=== PATIENT | female | born 1925 | race Caucasian/White ===

== ENCOUNTER 2016-07-19 11:52 | Emergency (ER) | payer OTHER, MEDICAID ==
[~2016-07-19] VITALS: Ht 152.4 cm; Wt 59.0 kg
[~2016-07-19 11:52] MED LIST: ASC500 PO; CEFE1PIG IVPB; FER325 PO; FURO20TA3 PO; IPRA3AMP HHN; LEVO500T72 PO; LEVO50TA83 PO; PRED10TA PO
[2016-07-19 11:55] VITALS: Ht 152.4 cm; Wt 59.0 kg
[2016-07-19] MEDS ORDERED: FAMOTIDINE 20 MG INJ IV STA (13:20)
[2016-07-19] MEDS ORDERED: SOD CHLORIDE 0.9% 1,000 ML IV STA ×2 (13:20→15:15)
[2016-07-19] MEDS ORDERED: ONDANSETRON 4 MG INJ IV STA (13:20)
[2016-07-19] MEDS ORDERED: LEVO50TA74 PO (13:32)
[2016-07-19 13:44] LABS: HEMATOCRIT 39.6 % (37.0-47.0); HEMOGLOBIN 13.1 g/dl (12.0-16.0); MEAN CORPUSCULAR HEMOGLOBIN 27.4 pg (29.0-33.0); MEAN CORPUSCULAR VOLUME 83.1 fl (82.0-101.0); MEAN PLATELET VOLUME 9.7 fl (7.4-10.4); PLATELET COUNT 79 10^3/UL (140-440); RED BLOOD COUNT 4.76 10^6/ul (4.20-5.40); RED CELL DISTRIBUTION WIDTH 27.9 % (11.5-14.5); UNCORRECTED WBC 6.6 10^3/ul (4.8-10.8); WHITE BLOOD COUNT 6.6 10^3/ul (4.8-10.8)
[2016-07-19 13:48] LABS: CONDITION 1; LH ANALYZER COMMENTS 1; SUSPECT 1
[2016-07-19 13:49] LABS: ALBUMIN 3.5 g/dl (3.3-4.9); POTASSIUM 4.7 mmol/L (3.5-5.1)
[2016-07-19 13:51] LABS: BILIRUBIN,INDIRECT 2.1 mg/dl (0-1.1); BILIRUBIN,TOTAL 2.1 mg/dl (0.2-1.3); CREATININE 1.28 mg/dl (0.44-1.00)
[2016-07-19 13:52] LABS: ALBUMIN/GLOBULIN RATIO 0.74; CALCIUM 9.8 mg/dl (8.4-10.2); TOTAL PROTEIN 8.2 g/dl (6.1-8.1)
[2016-07-19 14:04] LABS: TROPONIN-I 0.052 ng/ml (0.00-0.12)
[2016-07-19 14:07] LABS: BASOPHIL # 0.1 10^3/ul (0.0-0.1); EOSINOPHILS # 0.1 10^3/ul (0.0-0.5); MONOCYTE # 0.3 10^3/ul (0.3-0.9); NEUTROPHIL # 4.1 10^3/ul (1.6-7.5)
--- NOTE | 2016-07-19 14:13 | RADRPT ---
PROCEDURE: XR Chest. CLINICAL INDICATION: Abdominal Pain TECHNIQUE: Single portable view of the chest was obtained COMPARISON: 06/23/2016 FINDINGS: The heart is enlarged. Tortuosity and ectasia of the thoracic aorta. Atherosclerotic aortic calcifi cation. Chronic elevation of the right hemidiaphragm. Minimal bibasilar atelectasis and/or linear scarring. Punctate calcified granuloma overlying the left lung base near the costophrenic angle. The lungs are otherwise clear. There is no pleural effusion or pneumothorax. IMPRESSION: No acute intrathoracic abnormality. No focal consolidation or pleural effusion. RPTAT:AAJJ Jareth Alfonso Physician Date Time Electronically viewed and signed by Physician Elliott on 07/19/2016 14:13 CANDACE/
[2016-07-19 15:46] LABS: ADD UMIC YES; URINE BILIRUBIN (Dip) NEGATIVE (NEGATIVE); URINE BLOOD (Dip) TRACE (NEGATIVE); URINE COLOR LT. YELLOW (YELLOW); URINE GLUCOSE (Dip) NEGATIVE (NEGATIVE); URINE KETONES (Dip) NEGATIVE (NEGATIVE); URINE LEUKOCYTE ESTERASE (Dip) 1+ (NEGATIVE); URINE NITRITE (Dip) POSITIVE (NEGATIVE); URINE TOTAL PROTEIN (Dip) TRACE (NEGATIVE); URINE UROBILINOGEN (Dip) >8.0 E.U./dL (0.1-1.0)
[2016-07-19 15:58] LABS: BACTERIA,URINE MANY; SQUAMOUS EPITHELIAL CELL,UR MODERATE
[2016-07-19] MEDS ORDERED: CEFTRIAXONE 1 GM/50 ML (PMX) 50 ML IVPB ONE (16:00)
--- NOTE | 2016-07-19 16:03 | ERD ---
ER Documentation Chief Complaint Date/Time DATE: 07/19/16 TIME: 16:01 Chief Complaint BIB FAMILY FOR VOMITING TODAY HPI This is an 89-year-old female who presents to the emergency room with family members for evaluation of generalized weakness, and one episode of vomiting today. According family members this patient did vomit once. She has not been having any diarrhea, family denies any fevers associated with this vomiting. Patient denying that she is having any pain anywhere and came to the ER for evaluation ROS All systems reviewed and are negative except as per history of present illness. Medications Home Meds Active Scripts Ipratropium-Albuterol (Ipratropium-Albuterol) 0.5-3 Mg/3 Ml Ampul.neb, 3 ML HHN Q6H RESP THERAPY for 30 Days Prov:MAKAYLA CRAWFORD MD 06/24/16 Furosemide* (Furosemide*) 20 Mg Tablet, 20 MG PO BID DIURETICS, #60 TAB Prov:MAKAYLA CRAWFORD MD 06/24/16 Ferrous Sulfate* (Ferrous Sulfate*) 325 Mg Tabec, 325 MG PO BID, #60 TAB Prov:MAKAYLA CRAWFORD MD 06/24/16 Ascorbic Acid (Vitamin C) 500 Mg Tab, 500 MG PO BID, #30 TAB Prov:MAKAYLA CRAWFORD MD 06/24/16 Reported Medications Levothyroxine Sodium* (Levothyroxine Sodium*) 50 Mcg Tablet, 50 MCG PO BEFORE BREAKFAST, #30 TAB PER RELATIVES PT HASN'T BEEN ABLE TO TAKE RX'S DUE TO INSURANCE ISSUES 07/19/16 Discontinued Scripts Levofloxacin* (Levaquin*) 500 Mg Tablet, 500 MG PO Q48H, #5 TAB Prov:MAKAYLA CRAWFORD MD 06/24/16 Cefepime Hcl/Ivpb* (Cefepime- 1 Gm/50 Ml*) 1 Gm/50 Ml Piggyback, 1 GM IVPB Q12 for 7 Days, EA Prov:MAKAYLA CRAWFORD MD 06/24/16 Prednisone* (Prednisone*) 10 Mg Tab, 10 MG PO DAILY, #10 TAB Prov:MAKAYLA CRAWFORD MD 06/24/16 Levothyroxine Sodium* (Synthroid*) 50 Mcg Tablet, 50 MCG PO DAILY@06, #30 TAB Prov:MAKAYLA CRAWFORD MD 06/24/16 Allergies Allergies: Coded Allergies: No Known Allergy (Unverified , 06/23/16) PMhx/Soc History of Surgery: No Hx Neurological Disorder: No Hx Respiratory Disorders: Yes (COPD, ASTHMA) Hx Cardiac Disorders: Yes (CA, CHF, EF 40%) Hx Psychiatric Problems: No Hx Miscellaneous Medical Probl: Yes (ANEMIA) Hx Alcohol Use: No Hx Substance Use: No Hx Tobacco Use: No Physical Exam Vitals Vital Signs Date Time Temp Pulse Resp B/P Pulse Ox O2 Delivery O2 Flow Rate FiO2 07/19/16 11:55 97.8 80 16 142/63 96 Physical Exam INITIAL VITAL SIGNS: Reviewed by me GENERAL: The patient is well developed and appropriate for usual state of health in no apparent distress HEENT: Dry mucous membranes, pupils equal, round, and reactive to light. EOMI. There is no scleral icterus. NECK: C-spine is soft and supple, there is no meningismus. There is no cervical lymphadenopathy. LUNGS: Clear to auscultation bilaterally. There are no rales, wheezes or rhonchi. HEART: Regular rate and rhythm, no murmurs, clicks, rubs or gallops. ABDOMEN: Soft, non-tender, non-distended. There are bowel sounds in all four quadrants. No rebound or guarding. EXTREMITIES: There is no peripheral cyanosis or edema. No focal swelling or erythema. NEUROLOGICAL: The patient moves all four extremities with 5/5 strength. Cranial nerves II - XII are intact. Normal gait. Alert and oriented SKIN: There is no apparent rash or petechiae. HEME/LYMPHATIC: There is no evidence of excessive bruising or lymphedema. PSYCHIATRIC: The patient does not appear anxious or depressed. Result Diagram: 07/19/16 1330 07/19/16 1330 Results 24 hrs Laboratory Tests Test 07/19/16 13:30 07/19/16 15:06 Alanine Aminotransferase (ALT/SGPT) 76IU/L Albumin 3.5g/dl Albumin/Globulin Ratio 0.74 Alkaline Phosphatase 301IU/L Anion Gap 17 Aspartate Amino Transf (AST/SGOT) 90IU/L Band Neutrophils % 1.0% Basophils # 0.110^3/ul Basophils % 1.0% Blood Morphology Comment Blood Urea Nitrogen 49mg/dl Calcium Level 9.8mg/dl Carbon Dioxide Level 29mmol/L Chloride Level 104mmol/L Creatinine 1.28mg/dl Differential Comment MANUAL DIFF Direct Bilirubin 0.00mg/dl Eosinophils # 0.110^3/ul Eosinophils % 2.0% Globulin 4.70g/dl Glucose Level 147mg/dl Hematocrit 39.6% Hemoglobin 13.1g/dl Indirect Bilirubin 2.1mg/dl Lipase 489U/L Lymphocytes # 2.010^3/ul Lymphocytes % 30.0% Mean Corpuscular Hemoglobin 27.4pg Mean Corpuscular Hemoglobin Concent 33.0g/dl Mean Corpuscular Volume 83.1fl Mean Platelet Volume 9.7fl Monocytes # 0.310^3/ul Monocytes % 4.0% Neutrophils # 4.110^3/ul Neutrophils % 62.0% Nucleated Red Blood Cells # 10^3/ul Nucleated Red Blood Cells % /100WBC Platelet Count 7910^3/UL Potassium Level 4.7mmol/L Red Blood Count 4.7610^6/ul Red Cell Distribution Width 27.9% Sodium Level 145mmol/L Total Bilirubin 2.1mg/dl Total Protein 8.2g/dl Troponin I 0.052ng/ml White Blood Count 6.610^3/ul Urine Bacteria MANY Urine Bilirubin NEGATIVE Urine Clarity SLIGHTLY CLOUDY Urine Color LT. YELLOW Urine Glucose NEGATIVE% Urine Hemoglobin TRACE Urine Ketones NEGATIVE Urine Leukocyte Esterase 1+ Urine Microscopic RBC 2-5/HPF Urine Microscopic WBC >50/HPF Urine Nitrite POSITIVE Urine Specific [employer] 1.015 Urine Squamous Epithelial Cells MODERATE Urine Total Protein TRACE Urine Urobilinogen >8.0 E.U./dL Urine pH 6.5 Current Medications Medications (Trade) Dose Ordered Sig/To Route PRN Reason Start Time Stop Time Status Last Admin Dose Admin Sodium Chloride (NS) 1,000 ml @ 1,000 mls/hr Q1H STAT IV 07/19/16 13:20 07/19/16 14:19 DC 07/19/16 13:37 Ondansetron HCl (Zofran Inj) 4 mg ONCE STAT IV 07/19/16 13:20 07/19/16 13:22 DC 07/19/16 13:37 Famotidine 20 mg 20 mg ONCE STAT IV 07/19/16 13:20 07/19/16 13:22 DC 07/19/16 13:37 Sodium Chloride 1,000 ml @ 1,000 mls/hr Q1H STAT IV 07/19/16 15:15 07/19/16 16:14 Ceftriaxone Sodium (Rocephin) 50 ml @ 100 mls/hr ONCE ONCE IVPB 07/19/16 16:00 07/19/16 16:29 Procedures/MDM Chest X-ray 1V Interpreted by me: Soft Tissue: No acute abnormalities Bones: No acute abnormalities Mediastinum/Cardiac Silhouette/Lungs: [No acute abnormalities] EKG: Rate/Rhythm: [Normal Sinus Rhythm] QRS, ST, T-waves: [No changes consistent w/ acute ischemia] Impression: [No evidence of ischemia or arrhythmia] This is an 89-year-old female who presents to the emergency room for evaluation of generalized weakness, one episode of vomiting. This patient did appear to have dry mucous membranes on my examination, and I did obtain lab work was was normal. Her urinalysis does show nitrite positive urinary tract infection. This patient has nonischemic EKG, normal troponin. Negative chest x-ray. The patient was given Rocephin here in the emergency room and will be discharged home with a prescription for Macrobid. Departure Diagnosis: Primary Impression: Acute cystitis Additional Impressions: Vomiting Renal insufficiency Thrombocytopenia Condition: Stable PACHECO GOMEZ DO Jul 19, 2016 16:03
[2016-07-19] MEDS ORDERED: NITR-58 PO (16:04)
== END 2016-07-19 17:01 | disposition home or self-care (01) ==
LOC: E/R 11:52
DX: N30.00 Acute cystitis without hematuria (principal); N28.9 Disorder of kidney and ureter, unspecified; D69.6 Thrombocytopenia, unspecified; J44.9 Chronic obstructive pulmonary disease, unspecified; J45.909 Unspecified asthma, uncomplicated; I50.9 Heart failure, unspecified; E03.9 Hypothyroidism, unspecified; R53.1 Weakness
CPT/HCPCS: 71010; 80053; 81001; 83690; 84484; 85025; 93005; J0696; J2405; J7030; 36415; 81003; 96374; 96375

== ENCOUNTER 2016-09-15 11:57 | Inpatient (IN) | payer OTHER, MEDICAID ==
[~2016-09-15] VITALS: Ht 152.4 cm; Wt 57.5 kg
[~2016-09-15 11:57] MED LIST changes: -CEFE1PIG IVPB; -LEVO500T72 PO; +LEVO50TA74 PO; -LEVO50TA83 PO; +NITR-58 PO; -PRED10TA PO
[2016-09-16] VITALS (10 sets, daily range): BP systolic 145–192; BP diastolic 67–86; PULSE 70–87; RESP 17–20; Ht 152.4 cm; Wt 57.5 kg
[2016-09-16] MEDS ORDERED: ALBUTEROL 0.5% (NEB) 2.5 MG/0.5 ML AMP INH STA (01:25)
[2016-09-16 01:56] LABS: ADD SCAN DIFF NO
[2016-09-16 01:58] LABS: ABNORMAL IP MESSAGE 1; BASOPHILS % 0.3 % (0.0-2.0); EOSINOPHILS # 0.4 10^3/ul (0.0-0.5); EOSINOPHILS % 6.4 % (0.0-7.0); HEMATOCRIT 38.7 % (37.0-47.0); HEMOGLOBIN 12.5 g/dl (12.0-16.0); LYMPHOCYTES # 1.4 10^3/ul (0.8-2.9); LYMPHOCYTES % 23.8 % (15.0-51.0); MEAN CORPUSCULAR HGB CONC 32.3 g/dl (32.0-37.0); MONOCYTE # 0.5 10^3/ul (0.3-0.9); MONOCYTES % 8.4 % (0.0-11.0); NEUTROPHIL # 3.5 10^3/ul (1.6-7.5); NEUTROPHILS % 60.8 % (39.0-77.0); RED BLOOD COUNT 4.03 10^6/ul (4.20-5.40); RED CELL DISTRIBUTION WIDTH 15.3 % (11.5-14.5); WHITE BLOOD COUNT 5.8 10^3/ul (4.8-10.8)
[2016-09-16 02:09] LABS: PLATELET COUNT 94 10^3/UL (140-415)
[2016-09-16 02:10] LABS: ALBUMIN 3.6 g/dl (3.3-4.9); POTASSIUM 5.4 mmol/L (3.5-5.1)
[2016-09-16 02:12] LABS: CREATININE 1.35 mg/dl (0.44-1.00)
[2016-09-16 02:13] LABS: ALBUMIN/GLOBULIN RATIO 0.76; BILIRUBIN,INDIRECT 0.6 mg/dl (0-1.1); BILIRUBIN,TOTAL 0.6 mg/dl (0.2-1.3); CALCIUM 9.8 mg/dl (8.4-10.2); TOTAL PROTEIN 8.3 g/dl (6.1-8.1)
[2016-09-16 02:24] LABS: TROPONIN-I 0.043 ng/ml (0.00-0.12)
--- NOTE | 2016-09-16 02:43 | RADRPT ---
PROCEDURE: XR Chest. CLINICAL INDICATION: Abdominal pain. TECHNIQUE: Single frontal view of the chest was obtained COMPARISON: 07/19/2016. FINDINGS: Cardiomegaly. Tortuous thoracic aorta. Mild right lung base atelectasis versus airspace disease. Left lung is substantially clear.. There is no pleural effusion or pneumothorax. IMPRESSION: Mild right lung base atelectasis versus airspace disease may represent pneumonia in setting of abdom inal pain. RPTAT: [facility] Physician Namita Date Time Electronically viewed and signed by Physician Namita on 09/16/2016 02:43 RS/
[2016-09-16] MEDS ORDERED: LEVOFLOXACIN 750MG/D5W (PMX) 150 ML IVPB ONE (03:00)
[2016-09-16] MEDS ORDERED: METHYLPREDNISOLONE 125 MG INJ IV ONE (03:00)
[2016-09-16] MEDS ORDERED: SOD CHLORIDE 0.9% 1,000 ML IV ONE (03:00)
--- NOTE | 2016-09-16 03:01 | ERA ---
ER Documentation Chief Complaint Date/Time DATE: 09/16/16 TIME: 02:54 Chief Complaint COUGHING FOR THE PAST 2 WKS. NO DISTRESS, NO SIGNS OF SOB . HPI 89-year-old woman brought in by family members for coughing and shortness of breath 1-2 weeks. She has had no calf or leg swelling, no fevers or chills, no vomiting or diarrhea. Patient denies chest pain, no rash, no recent antibiotics, no new medications. Patient has multiple medical conditions which I reviewed. ROS All systems reviewed and are negative except as per history of present illness. Medications Home Meds Active Scripts Nitrofurantoin Monohyd Macrocr* (Macrobid*) 100 Mg Capsr, 100 MG PO BID for 10 Days, CAP Prov:PACHECO GOMEZ DO 07/19/16 Ipratropium-Albuterol (Ipratropium-Albuterol) 0.5-3 Mg/3 Ml Ampul.neb, 3 ML HHN Q6H RESP THERAPY for 30 Days Prov:MAKAYLA CRAWFORD MD 06/24/16 Furosemide* (Furosemide*) 20 Mg Tablet, 20 MG PO BID DIURETICS, #60 TAB Prov:MAKAYLA CRAWFORD MD 06/24/16 Ferrous Sulfate* (Ferrous Sulfate*) 325 Mg Tabec, 325 MG PO BID, #60 TAB Prov:MAKAYLA CRAWFORD MD 06/24/16 Ascorbic Acid (Vitamin C) 500 Mg Tab, 500 MG PO BID, #30 TAB Prov:MAKAYLA CRAWFORD MD 06/24/16 Reported Medications Levothyroxine Sodium* (Levothyroxine Sodium*) 50 Mcg Tablet, 50 MCG PO BEFORE BREAKFAST, #30 TAB PER RELATIVES PT HASN'T BEEN ABLE TO TAKE RX'S DUE TO INSURANCE ISSUES 07/19/16 Allergies Allergies: Coded Allergies: No Known Allergy (Unverified , 06/23/16) PMhx/Soc Congestive heart failure with a left ventricular ejection fraction of 40%, asthma/COPD, anemia, previous VT, hypothyroidism, obesity History of Surgery: No Hx Neurological Disorder: No Hx Respiratory Disorders: Yes (COPD, ASTHMA) Hx Cardiac Disorders: Yes (VT, CHF, EF 40%) Hx Psychiatric Problems: No Hx Miscellaneous Medical Probl: Yes (ANEMIA) Hx Alcohol Use: No Hx Substance Use: No Hx Tobacco Use: No Smoking Status: Never smoker FmHx Family History: No diabetes Physical Exam Vitals Vital Signs Date Time Temp Pulse Resp B/P Pulse Ox O2 Delivery O2 Flow Rate FiO2 09/16/16 01:50 69 22 97 21 09/15/16 12:11 98.9 60 22 125/60 98 Physical Exam GENERAL: Well-developed, well-nourished, dyspneic HEENT: Moist mucous membranes, pink conjunctiva, no cervical spine tenderness or step-off deformities, no goiter, no jaundice or icterus, extraocular movements intact without pain. No submandibular induration, and no pharyngeal erythema NEURO: Alert and oriented 3, cranial nerves II through XII intact bilaterally, pupils equal round reactive to light, no focal deficits or facial asymmetry, sensation intact distally Strength 5/5 in upper and lower extremities bilaterally CARDIAC: Regular rate and rhythm, no murmurs rubs or gallops LUNGS: Scattered wheezes, no crackles or stridor ABDOMEN: Soft nontender, no guarding, no rigidity, no rebound, no psoas sign no obturator sign. Normoactive bowel sounds SKIN: Warm and dry to touch, no abrasions, contusions, or hematomas, no lacerations, no ecchymosis, no target lesions, and without ulcers EXTREMITIES: No clubbing cyanosis or edema, calves are bilaterally symmetrical, no Homans sign, no popliteal cord sign. Distal pulses equal and bilateral PSYCH: Normal affect without agitation or irritability Result Diagram: 09/16/16 0141 09/16/16 0141 Results 24 hrs Laboratory Tests Test 09/16/16 01:41 Alanine Aminotransferase (ALT/SGPT) 37IU/L Albumin 3.6g/dl Albumin/Globulin Ratio 0.76 Alkaline Phosphatase 199IU/L Anion Gap 17 Aspartate Amino Transf (AST/SGOT) 59IU/L B-Type Natriuretic Peptide 552PG/ML Basophils # 0.010^3/ul Basophils % 0.3% Blood Urea Nitrogen 45mg/dl Calcium Level 9.8mg/dl Carbon Dioxide Level 24mmol/L Chloride Level 109mmol/L Creatinine 1.35mg/dl Direct Bilirubin 0.00mg/dl Eosinophils # 0.410^3/ul Eosinophils % 6.4% Globulin 4.70g/dl Glucose Level 197mg/dl Hematocrit 38.7% Hemoglobin 12.5g/dl Indirect Bilirubin 0.6mg/dl Lipase 1209U/L Lymphocytes # 1.410^3/ul Lymphocytes % 23.8% Mean Corpuscular Hemoglobin 31.0pg Mean Corpuscular Hemoglobin Concent 32.3g/dl Mean Corpuscular Volume 96.0fl Mean Platelet Volume 13.0fl Monocytes # 0.510^3/ul Monocytes % 8.4% Neutrophils # 3.510^3/ul Neutrophils % 60.8% Nucleated Red Blood Cells # 0.010^3/ul Nucleated Red Blood Cells % 0.0/100WBC Platelet Count 9410^3/UL Potassium Level 5.4mmol/L Red Blood Count 4.0310^6/ul Red Cell Distribution Width 15.3% Sodium Level 145mmol/L Total Bilirubin 0.6mg/dl Total Protein 8.3g/dl Troponin I 0.043ng/ml White Blood Count 5.810^3/ul Current Medications Medications (Trade) Dose Ordered Sig/To Route PRN Reason Start Time Stop Time Status Last Admin Dose Admin Albuterol (Proventil 0.5% (Neb)) 5 mg ONCE STAT INH 09/16/16 01:25 09/16/16 01:27 DC 09/16/16 01:49 Methylprednisolone Sodium Succinate 125 mg 125 mg ONCE ONCE IV 09/16/16 03:00 09/16/16 03:01 Sodium Chloride (NS) 1,000 ml @ 1,000 mls/hr Q1H ONCE IV 09/16/16 03:00 09/16/16 03:59 Procedures/MDM IV line was established patient was placed on monitor and storage bin tender rhythm strip revealed a sinus rhythm at about 70 bpm with upright P and T waves. Patient was afebrile. I administered albuterol 10 mg via nebulizer and patient eventually received methylprednisolone 125 mg IV 1. EKG performed, read by me revealed a normal sinus rhythm at 66 bpm, left axis deviation and a right ventricular conduction delay with a QRS duration of 102 ms , no concerning ST elevations or depressions noted. One view chest x-ray performed, read by me revealed a right lower lobe infiltrate and atelectatic changes bilaterally, no end of the diaphragm, no pneumothorax. CBC was unremarkable, electrolytes revealed mild hyperkalemia 5.3 and acute kidney injury with a BUN/creatinine of 45/1.4, liver function tests were unremarkable, lipase was elevated at 1200, troponin was negative, BNP was low. I treated her here with 1 L normal saline intravenously and levofloxacin 750 mg IV. Patient remains afebrile but symptomatic and will be admitted to telemetry setting for continued medical management, IV antibiotics, bronchodilator therapy. Critical Care: Time: 40 minutes, this was time separate from other procedures. Treatments/Evaluations: Close monitoring and treatment of unstable vital signs, cardiorespiratory, and neurologic status, while maintaining tight balance of fluid, respiratory, and cardiac interventions. Departure Diagnosis: Primary Impression: Pneumonia Qualified Code: J18.9 - Pneumonia of right lower lobe due to infectious organism Additional Impressions: COPD (chronic obstructive pulmonary disease) Qualified Code: J44.1 - Chronic obstructive pulmonary disease with acute exacerbation Acute kidney injury Dehydration Pancreatitis Qualified Code: K85.90 - Acute pancreatitis, unspecified complication status, unspecified pancreatitis type Hyperkalemia Condition: CARLA Castillo MD Sep 16, 2016 03:01
[2016-09-16] MEDS ORDERED: NA PHOSPHATE/BIPHOS 133 ML ENEMA PR PRN (04:30)
[2016-09-16] MEDS ORDERED: HYDROCODONE/APAP (5/325) TAB PO PRN (04:30)
[2016-09-16] MEDS ORDERED: NITROGLYCERIN (SL) 0.4 MG TAB SL PRN (04:30)
[2016-09-16] MEDS ORDERED: ALBUTEROL/IPRATROPIUM (NEB) 3 ML AMP HHN PRN (04:30)
[2016-09-16] MEDS ORDERED: LORAZEPAM 2 MG INJ IV PRN (04:30)
[2016-09-16] MEDS ORDERED: NACL 0.9% 3 ML SYG IV SCH (04:30)
[2016-09-16] MEDS ORDERED: ONDANSETRON 4 MG INJ IV PRN (04:30)
[2016-09-16] MEDS ORDERED: ACETAMINOPHEN 325 MG TAB PO PRN (04:30)
[2016-09-16] MEDS ORDERED: MAGNESIUM HYDROXIDE 30ML CUP PO PRN (04:30)
[2016-09-16] MEDS ORDERED: DOCUSATE SODIUM 100 MG CAP PO PRN (04:30)
[2016-09-16] MEDS: PANTOPRAZOLE 40 MG INJ IV SCH (05:42)
[2016-09-16] MEDS: SOD CHLORIDE 0.45% 1,000 ML IV SCH ×2 (05:43→22:33)
[2016-09-16] MEDS: LEVOTHYROXINE 50 MCG TAB PO SCH (05:51)
[2016-09-16] MEDS: hydrALAzine 20 MG INJ IV PRN (05:57)
[2016-09-16 06:02] LABS: ADD SCAN DIFF NO
[2016-09-16 06:11] LABS: ABNORMAL IP MESSAGE 1; BASOPHILS % 0.5 % (0.0-2.0); EOSINOPHILS # 0.1 10^3/ul (0.0-0.5); EOSINOPHILS % 1.6 % (0.0-7.0); HEMATOCRIT 34.7 % (37.0-47.0); HEMOGLOBIN 11.4 g/dl (12.0-16.0); LYMPHOCYTES # 0.5 10^3/ul (0.8-2.9); LYMPHOCYTES % 12.2 % (15.0-51.0); MEAN CORPUSCULAR HEMOGLOBIN 31.5 pg (29.0-33.0); MEAN CORPUSCULAR HGB CONC 32.9 g/dl (32.0-37.0); MEAN CORPUSCULAR VOLUME 95.9 fl (82.0-101.0); MEAN PLATELET VOLUME 11.9 fl (7.4-10.4); MONOCYTE # 0.2 10^3/ul (0.3-0.9); MONOCYTES % 3.7 % (0.0-11.0); NEUTROPHIL # 3.6 10^3/ul (1.6-7.5); NEUTROPHILS % 81.8 % (39.0-77.0); PLATELET COUNT 73 10^3/UL (140-415); RED BLOOD COUNT 3.62 10^6/ul (4.20-5.40); WHITE BLOOD COUNT 4.4 10^3/ul (4.8-10.8)
[2016-09-16 06:45] LABS: ALBUMIN 3.2 g/dl (3.3-4.9)
[2016-09-16 06:46] LABS: POTASSIUM 4.6 mmol/L (3.5-5.1)
[2016-09-16 06:48] LABS: ALBUMIN/GLOBULIN RATIO 0.68; BILIRUBIN,INDIRECT 0.4 mg/dl (0-1.1); BILIRUBIN,TOTAL 0.4 mg/dl (0.2-1.3); CREATININE 1.21 mg/dl (0.44-1.00); TOTAL PROTEIN 7.9 g/dl (6.1-8.1)
[2016-09-16 06:49] LABS: CALCIUM 9.1 mg/dl (8.4-10.2)
--- NOTE | 2016-09-16 07:06 | HP ---
DATE OF ADMISSION: 09/16/2016 IDENTIFICATION: This is an 89-year-old female. CHIEF COMPLAINT: Shortness of breath and coughing. HISTORY OF PRESENT ILLNESS: An 89-year-old female with a past medical history of COPD, hypertension , prediabetes, chronic kidney disease, high cholesterol, CHF, systolic heart failure with an ejectio n fraction of 40%, hypothyroidism, thrombocytopenia, and coronary artery disease, who presents with 2 weeks of coughing and shortness of breath. No fevers or chills. No upper or lower GI bleeding. No nausea or vomiting. No chest pain. No diarrhea or constipation. The patient was last here at [facility] from 06/23/2016 to 06/24/2016. At that time she was treated for intractable abdominal p ain, for which she had an EGD at that time that showed some gastritis and she was sent to a [facility] after that admission. PAST MEDICAL HISTORY: As above. ALLERGIES: NO KNOWN DRUG ALLERGIES. HOME MEDICATIONS: 1. Macrobid 100 mg b.i.d. 2. Ipratropium/albuterol q.6h. 3. Ferrous sulfate 325 b.i.d. 4. Lasix 20 mg b.i.d. 5. Levoxyl 50 mcg before breakfast. 6. Vitamin C 500 mg b.i.d. PAST SURGICAL HISTORY: None. SOCIAL HISTORY: Negative for smoking, drinking, or IV drug abuse. FAMILY HISTORY: Noncontributory. PHYSICAL EXAMINATION: VITAL SIGNS: Today T-max 98.9, pulse 69, respirations 22, blood pressure is 125/60, saturating at 9 8% on room air. GENERAL: The patient is lying in bed, answering questions appropriately, in no acute distress. HEENT: Pupils are equal, round, and react to light. Extraocular muscles intact. NECK: Supple. No thyromegaly. LUNGS: Mild wheezes heard bilaterally. No crackles. CARDIOVASCULAR: S1, S2 heard. No rubs or gallops. ABDOMEN: Soft, nontender, nondistended. Normal bowel sounds. No rebound or guarding. MUSCULOSKELETAL: No lower extremity edema bilaterally. NEUROLOGIC: No focal deficits. LABORATORY: CBC is normal, except the platelets are 94. Sodium 145, potassium 5.4, chloride 109, C O2 24, BUN 45, creatinine 1.35, glucose 197. AST is 59. Alkaline phosphatase 199. The rest of the LFTs are normal. BNP is 552, slightly elevated. Lipase is 1209. Chest x-ray showed mild right lung base atelectasis versus airspace disease. May represent pneumoni a in the setting of abdominal pain. ASSESSMENT AND PLAN: An 89-year-old female coming in with shortness of breath, cough, signs of panc reatitis and possible upper respiratory infections. 1. Shortness of breath and cough. Will admit the patient to the telemetry floor, put her on DuoNeb treatments, broad spectrum antibiotics and check a TSH, A1c, and lipid panel. Tylenol p.r.n. for p ain and fevers. Follow up culture results. Suspect signs of possible mild upper respiratory infect ion. 2. Elevated lipase and signs of pancreatitis. Keep the patient n.p.o. Give her half-normal saline IV fluids. 3. Mild hypernatremia. Continue half-normal saline IV fluids. 4. History of coronary artery disease, with possible RI in the past. Continue the current medicati ons. Continue to monitor for now. She is on the telemetry floor. Nitroglycerin p.r.n. 5. History of congestive heart failure, with an ejection fraction of 40%, with a history of systoli c heart failure. Consider checking a repeat echocardiogram. Monitor for now. Otherwise get PT and OT consults as well. 6. History of chronic obstructive pulmonary disease and asthma. Again, she is on DuoNebs p.r.n. Sh e does have some wheezing, so if it gets worse, consider changing it to around the clock. 7. Thrombocytopenia. No signs of any bleeding. Continue to monitor for now. Hold all anticoagula nts as well. Monitor for signs of bleeding. 8. Hypothyroidism. Continue Synthroid. 9. Gastrointestinal prophylaxis. She is on a PPI. 10. Deep venous thrombosis prophylaxis. SCDs. Dictated By: ANALI TOLENTINO Conf#: [id number] DID#: [id number]
[2016-09-16] MEDS ORDERED: NA POLYST SULFON 15 GM/60 ML BTL PO ONE (07:30)
[2016-09-16] MEDS: ALBUTEROL/IPRATROPIUM (NEB) 3 ML AMP HHN SCH ×3 (08:00→20:08)
[2016-09-16] MEDS: FERROUS SULFATE (EC) 325 MG TAB PO SCH ×2 (10:06→22:35)
[2016-09-16] MEDS: ASCORBIC ACID 500 MG TAB PO SCH ×2 (10:06→22:35)
--- NOTE | 2016-09-16 13:34 | PN ---
Date/Time of Note Date/Time of Note DATE: 09/16/16 TIME: 13:18 Assessment/Plan VTE Prophylaxis VTE Prophylaxis Intervention: SCD's Assessment/Plan Assessment/Plan 1. acute pancreatitis, ?etiology, abdominal ultrasound, start diet since pain is subsided today 2. Dehydration from vomiting, IVF 3. Mild hypernatremia. Continue half-normal saline IV fluids. 4. Acute renal failure due to dehydration, IVF 5. History of coronary artery disease, with possible [place] in the past. Continue the current medications. 6. History of congestive heart failure, with an ejection fraction of 40%, with a history of systolic heart failure. stable 7. History of chronic obstructive pulmonary disease and asthma. stable 8 Thrombocytopenia. No signs of any bleeding. Continue to monitor for now. follow up with PLT 9. Hypothyroidism. Continue Synthroid. 10. Gastrointestinal prophylaxis. She is on a PPI. 11. Deep venous thrombosis prophylaxis. SCDs Subjective 24 Hr Interval Summary Free Text/Dictation no abdominal pain, no nausea or vomiting today No shortness of breath Exam/Review of Systems Vital Signs Vitals Vital Signs Date Time Temp Pulse Resp B/P Pulse Ox O2 Delivery O2 Flow Rate FiO2 09/16/16 12:28 87 09/16/16 12:08 98.0 17 145/69 99 09/16/16 05:07 Room Air 09/16/16 01:50 21 Exam Constitutional: alert, oriented, well developed Psych: nl mood/affect, no complaints Head: atraumatic, normocephalic Eyes: EOMI, PERRL, nl conjunctiva, nl lids ENMT: nl external ears & nose, nl lips & teeth, nl nasal mucosa & septum Neck: non-tender, supple Respiratory: clear to auscultation, normal air movement, No congested cough, No crackles/rales, No diminished breath sounds, No intercostal retraction, No labored breathing, No other, No respirations, No tactile fremitus, No wheezing Cardiovascular: nl pulses, regular rate and rhythm, No S3, No S4, No bruits, No diastolic murmur, No edema, No gallop, No irregular rhythm, No jugular venous distention (JVD), No murmurs/extra sounds, No other, No rub, No systolic murmur Gastrointestinal: nl liver, spleen, non-tender, soft, No ascites, No bowel sounds, No distended, No firm, No hepatomegaly, No mass , No other, No rebound or guarding, No splenomegaly, No surgical scars, No tender Musculoskeletal: nl extremities to inspection Extremities: normal pulses, No calf tenderness, No clubbing, No cyanosis, No edema, No other, No palpable cord, No pitting pedal edema, No tenderness Neurological: ELECTRICIAN II-XII intact, nl mental status, nl speech, nl strength Skin: nl turgor Lymph: nl lymph nodes Results Result Diagram: 09/16/16 0535 09/16/16 0535 Results 24 hrs Laboratory Tests Test 09/16/16 01:41 09/16/16 05:35 Alanine Aminotransferase (ALT/SGPT) 37 37 Albumin 3.6 3.2 L Albumin/Globulin Ratio 0.76 0.68 Alkaline Phosphatase 199 H 187 H Anion Gap 17 H 18 H Aspartate Amino Transf (AST/SGOT) 59 H 46 B-Type Natriuretic Peptide 552 H Basophils # 0.0 0.0 Basophils % 0.3 0.5 Blood Urea Nitrogen 45 H 42 H Calcium Level 9.8 9.1 Carbon Dioxide Level 24 23 Chloride Level 109 109 Creatinine 1.35 H 1.21 H Direct Bilirubin 0.00 0.00 Eosinophils # 0.4 0.1 Eosinophils % 6.4 1.6 Globulin 4.70 H 4.70 H Glucose Level 197 169 Hematocrit 38.7 34.7 L Hemoglobin 12.5 11.4 L Indirect Bilirubin 0.6 0.4 Lipase 1209 H 1217 H Lymphocytes # 1.4 0.5 L Lymphocytes % 23.8 12.2 L Mean Corpuscular Hemoglobin 31.0 31.5 Mean Corpuscular Hemoglobin Concent 32.3 32.9 Mean Corpuscular Volume 96.0 95.9 Mean Platelet Volume 13.0 #H 11.9 H Monocytes # 0.5 0.2 L Monocytes % 8.4 3.7 Neutrophils # 3.5 3.6 Neutrophils % 60.8 81.8 H Nucleated Red Blood Cells # 0.0 0.0 Nucleated Red Blood Cells % 0.0 0.0 Platelet Count 94 L 73 #L Potassium Level 5.4 H 4.6 Red Blood Count 4.03 L 3.62 L Red Cell Distribution Width 15.3 #H 15.0 H Sodium Level 145 H 145 H Total Bilirubin 0.6 0.4 Total Protein 8.3 H 7.9 Troponin I 0.043 White Blood Count 5.8 4.4 #L Free Thyroxine 1.41 Medications Medications Current Medications Ondansetron HCl (Zofran Inj) 4 mg Q6H PRN IV NAUSEA AND/OR VOMITING; Start at 04:30 Acetaminophen (Tylenol Tab) 650 mg Q6H PRN PO PAIN LEVEL 1-3 OR FEVER; Start at 04:30 Acetaminophen/ Hydrocodone Bitart ([place] (5/325)) 1 tab Q6H PRN PO MODERATE PAIN LEVEL 4-6; Start 09/16/16 at 04:30 Morphine Sulfate (morphine) 2 mg Q4H PRN IV SEVERE PAIN LEVEL 7-10; Start 09/16 at 04:30 Docusate Sodium (Colace) 100 mg Q12H PRN PO CONSTIPATION; Start 09/16/16 at 04: 30 Magnesium Hydroxide (Milk Of Mag) 30 ml DAILY PRN PO CONSTIPATION; Start at 04:30 Sodium Biphosphate/ Sodium Phosphate (Fleet Enema) 133 ml DAILY PRN [place] CONSTIPATION; Start 09/16/16 at 04:30 Pantoprazole 40 mg 40 mg DAILY@06 IV Last administered on 09/16/16 05:42; Admin Dose 40 MG; Start 09/16/16 at 06:00 Sodium Chloride (1/2 NS) 1,000 ml @ 75 mls/hr [id number] IV Last administered on 09/16/16 05:43; Admin Dose 75 MLS/HR; Start 09/16/16 at 04:20 Lorazepam 0.5 mg 0.5 mg Q6H PRN IV ANXIETY; Start 09/16/16 at 04:30 Levofloxacin/ Dextrose (Levaquin 750 Mg/ D5W 150 ml (Pmx)) 150 ml @ 100 mls/hr Q48H IVPB ; Start 09/18/16 at 03:00 Hydralazine HCl (Apresoline) 10 mg Q6H PRN IV ELEVATED SYSTOLIC BP Last administered on 09/16/16 05:57; Admin Dose 10 MG; Start 09/16/16 at 04:30 Nitroglycerin (Nitroglycerin (Sl Tab) 0.4 Mg) 1 tab Q5M PRN SL ANGINA; Start at 04:30 Ascorbic Acid (Vitamin C) 500 mg BID PO Last administered on 09/16/16 10:06; Admin Dose 500 MG; Start 09/16/16 at 09:00 Ferrous Sulfate (Ferrous Sulfate (Ec)) 325 mg BID PO Last administered on 10:06; Admin Dose 325 MG; Start 09/16/16 at 09:00 ESAU NAIDU MD Sep 16, 2016 13:28
[2016-09-16 15:14] LABS: ADD UMIC YES; URINE BILIRUBIN (Dip) NEGATIVE (NEGATIVE); URINE BLOOD (Dip) NEGATIVE (NEGATIVE); URINE COLOR LT. YELLOW (YELLOW); URINE GLUCOSE (Dip) NEGATIVE (NEGATIVE); URINE KETONES (Dip) NEGATIVE (NEGATIVE); URINE LEUKOCYTE ESTERASE (Dip) 1+ (NEGATIVE); URINE NITRITE (Dip) NEGATIVE (NEGATIVE); URINE TOTAL PROTEIN (Dip) NEGATIVE (NEGATIVE); URINE UROBILINOGEN (Dip) 0.2 E.U./dL (0.1-1.0)
[2016-09-16 15:34] LABS: BACTERIA,URINE MANY; SQUAMOUS EPITHELIAL CELL,UR MODERATE; URINE RBCS NONE SEEN /HPF (0)
--- NOTE | 2016-09-16 19:12 | RADRPT ---
Echocardiogram Report Patient Name: TOMAS KIMBALL Gender: Female Date: 1925 Study Date: 16-Sep-2016 Borematic Machine Operator: Ck Wu [facility] Location: [id number] Ref. Physician: ANALI BARRETO Quality: Good Procedures: Transthoracic echocardiogram with complete 2D, M-Mode, and doppler examination. Indications: Shortness of breath. 2D/M Mode Doppler Measurement Value Normal Ranges Measurement Value Normal Ranges LVIDd 2D 4.4 3.5 - 5.6 cm PATRICK Vmax 1.6 cm2 LVIDs 2D 3.5 2.1 - 4.1 cm PATRICK VTI 1.6 cm2 LVPWd 2D 1.3 0.6 - 1.1 cm AV Mean Ajit 1.3 m/sec IVSd 2D 1.4 0.6 - 1.1 cm AV Mean PG 8.2 mmHg AoR Diam 2D 2.9 2.0 - 3.7 cm AV Peak Ajit 2.2 m/sec EDV 2D 89.0 cm3 AV Peak PG 18.6 mmHg ESV 2D 41.1 cm3 AV VTI 33.3 cm LA Dimen 2D 4.2 2.3 - 4.0 cm AI Peak PG 74.2 mmHg LVOT Diam 2.0 cm AI Peak Ajit 4.3 m/sec AI PHT 303.6 msec LVOT Mean Ajit 0.6 m/sec LVOT Mean PG 1.8 mmHg LVOT Peak Ajit 1.1 m/sec LVOT Peak PG 4.5 mmHg LVOT VTI 16.9 cm MV E Peak Ajit 0.5 m/sec MV A Peak Ajit 0.9 m/sec MV E/A 0.6 MV Decel Time 109 msec MV Decel Preston 5 MV E/A 0.6 Findings Left Ventricle: Normal left ventricular cavity size. Mild concentric left ventricular hypertrophy. Mild left ventricular systolic dysfunction. Ejection fraction is visually estimated at 45 %. Tissue Doppler/Mitral Doppler indices are consistent with impaired relaxation (Stage I diastolic dysfunction). These segments of the LV are hypokinetic mid septum segment. Right Ventricle: Normal right ventricular size. Normal right ventricular systolic function. Left Atrium: There is mild enlargement of left atrium. Right Atrium: The right atrium is normal in size. Mitral Valve: Mitral valve leaflets appear mildly thickened. Mild mitral valve regurgitation. Aortic Valve: Mild aortic stenosis. Aortic valve Max velocity 2.16 m/sec. Max PG 18.60 mmHg. Mean PG 8.20 mmHg. Aortic cusps appear mildly calcified. Mild aortic valve regurgitation. Tricuspid Valve: Normal appearance and function of the tricuspid valve with trace physiologic regurgitation. Pulmonic Valve: Normal pulmonic valve appearance. Pericardium: Normal pericardium with no significant pericardial effusion. Aorta: Normal aortic root. IVC: Normal size and no respiratory collapse consistent with elevated right atrial pressure. Conclusions 1.Normal left ventricular cavity size. Mild concentric left ventricular hypertrophy. Mild left ventricular systolic dysfunction. Ejection fraction is visually estimated at 45-50 %. Tissue Doppler/Mitral Doppler indices are consistent with impaired relaxation (Stage I diastolic dysfunction). These segments of the LV are hypokinetic mid septum segment. 2.Mild mitral valve regurgitation. 3.Mild Aortic Stenosis. Mild aortic valve regurgitation. 4.Normal appearance and function of the tricuspid valve with trace physiologic regurgitation. Electronically Signed By: Joe Bello 16-Sep-2016 19:12:14 -0700 Patient Name: TOMAS KIMBALL Study Date: 16-Sep-2016 [id number]
[2016-09-17] VITALS (11 sets, daily range): BP systolic 98–173; BP diastolic 56–76; PULSE 64–112; RESP 17–18
[2016-09-17] MEDS: ALBUTEROL/IPRATROPIUM (NEB) 3 ML AMP HHN SCH ×4 (01:41→20:17)
[2016-09-17] MEDS: morphine 2 MG INJ IV PRN (03:52)
[2016-09-17] MEDS: PANTOPRAZOLE 40 MG INJ IV SCH (05:47)
[2016-09-17] MEDS: SOD CHLORIDE 0.45% 1,000 ML IV SCH ×2 (05:47→21:35)
[2016-09-17] MEDS: LEVOTHYROXINE 50 MCG TAB PO SCH (06:06)
[2016-09-17 08:00] LABS: CHOL/HDL RATIO 4.8 RATIO
[2016-09-17 08:20] LABS: ADD SCAN DIFF NO
[2016-09-17 08:25] LABS: THYROID STIMULATING HORMONE 3.46 MIU/L (0.465-4.680)
[2016-09-17 08:40] LABS: ABNORMAL IP MESSAGE 1; BASOPHILS % 0.2 % (0.0-2.0); EOSINOPHILS % 0.3 % (0.0-7.0); HEMOGLOBIN 9.8 g/dl (12.0-16.0); LYMPHOCYTES % 15.1 % (15.0-51.0); MEAN CORPUSCULAR HGB CONC 33.8 g/dl (32.0-37.0); MEAN CORPUSCULAR VOLUME 94.8 fl (82.0-101.0); MEAN PLATELET VOLUME 12.4 fl (7.4-10.4); MONOCYTE # 0.6 10^3/ul (0.3-0.9); MONOCYTES % 9.4 % (0.0-11.0); NEUTROPHIL # 4.8 10^3/ul (1.6-7.5); NEUTROPHILS % 74.7 % (39.0-77.0); PLATELET COUNT 80 10^3/UL (140-415); RED BLOOD COUNT 3.06 10^6/ul (4.20-5.40); WHITE BLOOD COUNT 6.4 10^3/ul (4.8-10.8)
[2016-09-17 08:46] LABS: POTASSIUM 4.4 mmol/L (3.5-5.1)
[2016-09-17 08:48] LABS: CREATININE 1.35 mg/dl (0.44-1.00)
[2016-09-17 08:49] LABS: CALCIUM 9.2 mg/dl (8.4-10.2); PHOSPHORUS 3.9 mg/dl (2.5-4.9)
[2016-09-17 08:50] LABS: MAGNESIUM 1.9 mg/dl (1.7-2.5)
[2016-09-17] MEDS: FERROUS SULFATE (EC) 325 MG TAB PO SCH ×2 (09:23→21:34)
[2016-09-17] MEDS: ASCORBIC ACID 500 MG TAB PO SCH ×2 (09:23→21:34)
--- NOTE | 2016-09-17 14:27 | PN ---
Date/Time of Note Date/Time of Note DATE: 09/17/16 TIME: 14:20 Assessment/Plan VTE Prophylaxis VTE Prophylaxis Intervention: SCD's VTE Contraindication Reason: thrombocytopenia Lines/Catheters IV [facility] Saline Lock Urinary Cath still in place: No Assessment/Plan Assessment/Plan 1. Acute pancreatitis, ?etiology,: much improved 2. Dehydration from vomiting: s/p rehydration 3. Mild hypernatremia. resolved 4. CKD stage IV : patient seems to be at baseline 5. Known coronary artery disease, with possible [place] in the past. Continue the current medications. 6. History of congestive heart failure, with an ejection fraction of 40%, with a history of systolic heart failure. stable 7. Chronic obstructive pulmonary disease and asthma exacerbation. stable 8 Gram negative zachary UTI with probable R Lower lobe pneumonia 9. Hypothyroidism. Continue Synthroid. 10. Chronic thrombocytopenia, cannot r/o underlying liver disease PLAN: * continue current mgt * f/u final culture results * Gastrointestinal prophylaxis. She is on a PPI. * Deep venous thrombosis prophylaxis. SCDs Subjective 24 Hr Interval Summary Free Text/Dictation lethargic ++ Exam/Review of Systems Vital Signs Vitals Vital Signs Date Time Temp Pulse Resp B/P Pulse Ox O2 Delivery O2 Flow Rate FiO2 09/17/16 12:38 64 09/17/16 11:45 98.4 18 98/56 100 09/17/16 07:59 21 09/16/16 05:07 Room Air Intake and Output 09/16/16 09/16/16 09/17/16 15:00 23:00 07:00 Intake Total 250 ml Balance 250 ml Exam Constitutional: frail, oriented Head: normocephalic Eyes: PERRL ENMT: No mucosa pink and moist Respiratory: diminished breath sounds, wheezing, No crackles/rales Cardiovascular: regular rate and rhythm, No murmurs/extra sounds Gastrointestinal: bowel sounds, soft, tender Extremities: No edema Neurological: lethargic Results Result Diagram: 09/17/16 0635 09/17/16 0635 Results 24 hrs Laboratory Tests Test 09/17/16 06:35 Anion Gap 17 H Basophils # 0.0 Basophils % 0.2 Blood Urea Nitrogen 40 H Calcium Level 9.2 Carbon Dioxide Level 20 L Chloride Level 111 H Cholesterol Level 130 Cholesterol/HDL Ratio 4.8 Creatinine 1.35 H Eosinophils # 0.0 Eosinophils % 0.3 Glucose Level 105 # HDL Cholesterol 27 L Hematocrit 29.0 L Hemoglobin 9.8 L Hemoglobin A1c 5.5 LDL Cholesterol, Calculated 89 Lipase 418 H Lymphocytes # 1.0 Lymphocytes % 15.1 Magnesium Level 1.9 Mean Corpuscular Hemoglobin 32.0 Mean Corpuscular Hemoglobin Concent 33.8 Mean Corpuscular Volume 94.8 Mean Platelet Volume 12.4 H Monocytes # 0.6 Monocytes % 9.4 Neutrophils # 4.8 Neutrophils % 74.7 Nucleated Red Blood Cells # 0.0 Nucleated Red Blood Cells % 0.0 Phosphorus Level 3.9 Platelet Count 80 L Potassium Level 4.4 Red Blood Count 3.06 L Red Cell Distribution Width 15.0 H Sodium Level 144 Thyroid Stimulating Hormone (TSH) 3.460 Triglycerides Level 69 White Blood Count 6.4 # Medications Medications Current Medications Ondansetron HCl (Zofran Inj) 4 mg Q6H PRN IV NAUSEA AND/OR VOMITING; Start at 04:30 Acetaminophen (Tylenol Tab) 650 mg Q6H PRN PO PAIN LEVEL 1-3 OR FEVER; Start at 04:30 Acetaminophen/ Hydrocodone Bitart ([place] (5/325)) 1 tab Q6H PRN PO MODERATE PAIN LEVEL 4-6; Start 09/16/16 at 04:30 Morphine Sulfate (morphine) 2 mg Q4H PRN IV SEVERE PAIN LEVEL 7-10 Last administered on 09/17/16 03:52; Admin Dose 2 MG; Start 09/16/16 at 04:30 Docusate Sodium (Colace) 100 mg Q12H PRN PO CONSTIPATION; Start 09/16/16 at 04: 30 Magnesium Hydroxide (Milk Of Mag) 30 ml DAILY PRN PO CONSTIPATION; Start at 04:30 Sodium Biphosphate/ Sodium Phosphate (Fleet Enema) 133 ml DAILY PRN [place] CONSTIPATION; Start 09/16/16 at 04:30 Pantoprazole 40 mg 40 mg DAILY@06 IV Last administered on 09/17/16 05:47; Admin Dose 40 MG; Start 09/16/16 at 06:00 Sodium Chloride (1/2 NS) 1,000 ml @ 75 mls/hr [id number] IV Last administered on 09/17/16 05:47; Admin Dose 75 MLS/HR; Start 09/16/16 at 04:20 Lorazepam (Ativan) 0.5 mg Q6H PRN IV ANXIETY Last administered on 09/17/16 01: 30; Admin Dose 0.5 MG; Start 09/16/16 at 04:30 Hydralazine HCl (Apresoline) 10 mg Q6H PRN IV ELEVATED SYSTOLIC BP Last administered on 09/16/16 05:57; Admin Dose 10 MG; Start 09/16/16 at 04:30 Nitroglycerin (Nitroglycerin (Sl Tab) 0.4 Mg) 1 tab Q5M PRN SL ANGINA; Start at 04:30 Ascorbic Acid (Vitamin C) 500 mg BID PO Last administered on 09/17/16 09:23; Admin Dose 500 MG; Start 09/16/16 at 09:00 Ferrous Sulfate (Ferrous Sulfate (Ec)) 325 mg BID PO Last administered on 09:23; Admin Dose 325 MG; Start 09/16/16 at 09:00 Procedures Procedures PROCEDURE: XR Chest. CLINICAL INDICATION: Abdominal pain. TECHNIQUE: Single frontal view of the chest was obtained COMPARISON: 07/19/2016. FINDINGS: Cardiomegaly. Tortuous thoracic aorta. Mild right lung base atelectasis versus airspace disease. Left lung is substantially clear.. There is no pleural effusion or pneumothorax. IMPRESSION: Mild right lung base atelectasis versus airspace disease may represent pneumonia in setting of abdominal pain. RPTAT: UU Physician Namita Date Time Electronically viewed and signed by Suzan Maldonado Physician on 09/16/2016 02:43 RS/ CC: CARLA HARDIN MD, BOLATITO M. Sep 17, 2016 14:27
--- NOTE | 2016-09-17 20:07 | RADRPT ---
PROCEDURE: US Abdomen (right upper quadrant). CLINICAL INDICATION: Right upper quadrant abdomen pain. TECHNIQUE: Multiple real-time longitudinal and transverse images of the right upper quadrant of th e abdomen were acquired utilizing a curved array transducer. Images were reviewed on a high-resoluti on PACS workstation. COMPARISON: None FINDINGS: The liver is normal in size and echogenicity. There is no focal hepatic lesion. Color Doppler and pulsed Doppler sonography demonstrate normal an tegrade flow in the portal vein. The gallbladder is surgically absent. The bile ducts are normal with the common bile duct measuring 6.7 mm in diameter. The visualized portions of the pancreas are unremarkable with obscuration of the tail of the pancrea s. No free fluid is present. The right kidney measures 9.4 x 4.0 x 5.9 cm. There is normal echogenicity of the right kidney. T here is mild right hydronephrosis. There is no right renal mass or calculus. IMPRESSION: 1. Status post cholecystectomy. 2. Mild right hydronephrosis. Clinical correlation advised. 3. Otherwise normal right upper quadrant abdomen ultrasound. RPTAT: QQ .Bk Jacob MD, Date Time Electronically viewed and signed by .Bk Jacob MD, on 09/17/2016 20:06 .R/
[2016-09-17] MEDS: DOCUSATE SODIUM 100 MG CAP PO SCH (21:34)
[2016-09-18] VITALS (11 sets, daily range): BP systolic 133–170; BP diastolic 58–84; PULSE 67–78; RESP 17–18
[2016-09-18] MEDS: ALBUTEROL/IPRATROPIUM (NEB) 3 ML AMP HHN SCH ×4 (01:39→20:37)
[2016-09-18] MEDS ORDERED: LEVOFLOXACIN 500MG/D5W (PMX) 100 ML IVPB SCH (03:00)
[2016-09-18] MEDS ORDERED: LEVOFLOXACIN 750MG/D5W (PMX) 150 ML IVPB SCH (03:00)
[2016-09-18] MEDS: LEVOTHYROXINE 50 MCG TAB PO SCH (06:18)
[2016-09-18] MEDS: PANTOPRAZOLE 40 MG INJ IV SCH (06:18)
[2016-09-18 06:44] LABS: ADD SCAN DIFF NO
[2016-09-18 06:52] LABS: ABNORMAL IP MESSAGE 1; BASOPHILS % 0.5 % (0.0-2.0); EOSINOPHILS # 0.1 10^3/ul (0.0-0.5); EOSINOPHILS % 2.2 % (0.0-7.0); HEMATOCRIT 30.3 % (37.0-47.0); HEMOGLOBIN 10.1 g/dl (12.0-16.0); LYMPHOCYTES # 1.3 10^3/ul (0.8-2.9); LYMPHOCYTES % 36.4 % (15.0-51.0); MEAN CORPUSCULAR HEMOGLOBIN 31.9 pg (29.0-33.0); MEAN CORPUSCULAR HGB CONC 33.3 g/dl (32.0-37.0); MEAN CORPUSCULAR VOLUME 95.6 fl (82.0-101.0); MONOCYTE # 0.3 10^3/ul (0.3-0.9); MONOCYTES % 7.3 % (0.0-11.0); NEUTROPHILS % 53.3 % (39.0-77.0); PLATELET COUNT 61 10^3/UL (140-415); RED BLOOD COUNT 3.17 10^6/ul (4.20-5.40); RED CELL DISTRIBUTION WIDTH 14.7 % (11.5-14.5); WHITE BLOOD COUNT 3.7 10^3/ul (4.8-10.8)
[2016-09-18 07:02] LABS: INR 1.21; PROTIME 15.4 Sec (12.2-14.2); PT RATIO 1.2
[2016-09-18 07:03] LABS: PARTIAL THROMBOPLASTIN TIME 34.7 Sec (25.0-35.0)
[2016-09-18 07:33] LABS: ALBUMIN 2.7 g/dl (3.3-4.9); POTASSIUM 4.3 mmol/L (3.5-5.1)
[2016-09-18 07:35] LABS: CREATININE 1.6 mg/dl (0.44-1.00)
[2016-09-18 07:36] LABS: BILIRUBIN,INDIRECT 0.3 mg/dl (0-1.1); BILIRUBIN,TOTAL 0.3 mg/dl (0.2-1.3); CALCIUM 9.2 mg/dl (8.4-10.2); TOTAL PROTEIN 6.4 g/dl (6.1-8.1)
[2016-09-18] MEDS: DOCUSATE SODIUM 100 MG CAP PO SCH ×2 (08:12→21:00)
[2016-09-18] MEDS: FERROUS SULFATE (EC) 325 MG TAB PO SCH ×2 (08:12→21:00)
[2016-09-18] MEDS: ASCORBIC ACID 500 MG TAB PO SCH ×2 (08:12→21:00)
[2016-09-18] MEDS: SOD CHLORIDE 0.45% 1,000 ML IV SCH ×2 (08:13→22:24)
--- NOTE | 2016-09-18 13:59 | PN ---
Date/Time of Note Date/Time of Note DATE: 09/18/16 TIME: 13:55 Assessment/Plan VTE Prophylaxis VTE Prophylaxis Intervention: SCD's VTE Contraindication Reason: thrombocytopenia Lines/Catheters IV Catheter Type (from Nrsg): Saline Lock Urinary Cath still in place: No Assessment/Plan Assessment/Plan 89 yo F with 1. Acute pancreatitis, ?etiology,: lipase levels have plateaued 2. Dehydration from vomiting: s/p rehydration 3. Mild hypernatremia. resolved 4. CKD stage IV : patient seems to be at baseline 5. Known coronary artery disease, with possible [place] in the past. Continue the current medications. 6. History of congestive heart failure, with an ejection fraction of 40%, with a history of systolic heart failure. stable 7. Chronic obstructive pulmonary disease and asthma exacerbation. stable 8 ESBL ecoli UTI with probable R Lower lobe pneumonia 9. Hypothyroidism. Continue Synthroid. 10. Mild transaminitis without hyperbilirubinemia + Chronic thrombocytopenia, cannot r/o underlying liver disease / no fatty liver on USS 11. Uterine prolapse likely contributing to UTI and mild R sided hydronephrosis PLAN: * Change abx to imipenem * Commercial Reporter consult for options regarding prolapse * Continue gentle hydration * review labs in am, if renal function continues to worsen, may need jeffrey * Continue PT and f/u fundraising consultant recs. * Gastrointestinal prophylaxis. She is on a PPI. * Deep venous thrombosis prophylaxis. SCDs Subjective 24 Hr Interval Summary Subjective hx not possible: pt non-verbal Constitutional: improved (seems improved to me) Genitourinary: other (large bulge from vagina) Exam/Review of Systems Vital Signs Vitals Vital Signs Date Time Temp Pulse Resp B/P Pulse Ox O2 Delivery O2 Flow Rate FiO2 09/18/16 13:48 21 09/18/16 12:09 97.8 71 18 157/64 96 09/16/16 05:07 Room Air Intake and Output 09/17/16 09/17/16 09/18/16 15:00 23:00 07:00 Intake Total 420 ml 1450 ml Balance 420 ml 1450 ml Exam Constitutional: frail, oriented Head: normocephalic Eyes: PERRL ENMT: No mucosa pink and moist Respiratory: diminished breath sounds, wheezing, No crackles/rales Cardiovascular: regular rate and rhythm, No murmurs/extra sounds Gastrointestinal: bowel sounds, soft, tender Extremities: No edema Neurological: slightly less lethargic Genitourinary - Female: other ( uterine prolapse), No nl adnexae, No nl external genitalia Results Result Diagram: 09/18/16 0640 09/18/16 0640 Results 24 hrs Laboratory Tests Test 09/18/16 06:20 09/18/16 06:40 Activated Partial Thromboplast Time 34.7 INR International Normalized Ratio 1.21 Lipase 431 H Prothrombin Time 15.4 H Prothrombin Time Ratio 1.2 Alanine Aminotransferase (ALT/SGPT) 40 Albumin 2.7 L Alkaline Phosphatase 139 H Anion Gap 14 Aspartate Amino Transf (AST/SGOT) 57 H Basophils # 0.0 Basophils % 0.5 Blood Urea Nitrogen 41 H Calcium Level 9.2 Carbon Dioxide Level 21 Chloride Level 112 H Creatinine 1.60 H Direct Bilirubin 0.00 Eosinophils # 0.1 Eosinophils % 2.2 Glucose Level 104 Hematocrit 30.3 L Hemoglobin 10.1 L Indirect Bilirubin 0.3 Lymphocytes # 1.3 Lymphocytes % 36.4 Mean Corpuscular Hemoglobin 31.9 Mean Corpuscular Hemoglobin Concent 33.3 Mean Corpuscular Volume 95.6 Mean Platelet Volume 11.0 H Monocytes # 0.3 Monocytes % 7.3 Neutrophils # 2.0 Neutrophils % 53.3 Nucleated Red Blood Cells # 0.0 Nucleated Red Blood Cells % 0.0 Platelet Count 61 #L Potassium Level 4.3 Red Blood Count 3.17 L Red Cell Distribution Width 14.7 H Sodium Level 143 Total Bilirubin 0.3 Total Protein 6.4 White Blood Count 3.7 #L Medications Medications Current Medications Ondansetron HCl (Zofran Inj) 4 mg Q6H PRN IV NAUSEA AND/OR VOMITING; Start at 04:30 Acetaminophen (Tylenol Tab) 650 mg Q6H PRN PO PAIN LEVEL 1-3 OR FEVER; Start at 04:30 Acetaminophen/ Hydrocodone Bitart ([place] (5/325)) 1 tab Q6H PRN PO MODERATE PAIN LEVEL 4-6; Start 09/16/16 at 04:30 Morphine Sulfate (morphine) 2 mg Q4H PRN IV SEVERE PAIN LEVEL 7-10 Last administered on 09/17/16t 03:52; Admin Dose 2 MG; Start 09/16/16 at 04:30 Magnesium Hydroxide (Milk Of Mag) 30 ml DAILY PRN PO CONSTIPATION; Start at 04:30 Sodium Biphosphate/ Sodium Phosphate (Fleet Enema) 133 ml DAILY PRN [place] CONSTIPATION; Start 09/16/16 at 04:30 Pantoprazole 40 mg 40 mg DAILY@06 IV Last administered on 09/18/16 06:18; Admin Dose 40 MG; Start 09/16/16 at 06:00 Sodium Chloride (1/2 NS) 1,000 ml @ 75 mls/hr [id number] IV Last administered on 09/17/16 21:35; Admin Dose 75 MLS/HR; Start 09/16/16 at 04:20; Stop 09/17/17 at 16:00 Lorazepam (Ativan) 0.5 mg Q6H PRN IV ANXIETY Last administered on 09/17/16 01: 30; Admin Dose 0.5 MG; Start 09/16/16 at 04:30 Hydralazine HCl (Apresoline) 10 mg Q6H PRN IV ELEVATED SYSTOLIC BP Last administered on 09/16/16 05:57; Admin Dose 10 MG; Start 09/16/16 at 04:30 Nitroglycerin (Nitroglycerin (Sl Tab) 0.4 Mg) 1 tab Q5M PRN SL ANGINA; Start at 04:30 Ascorbic Acid (Vitamin C) 500 mg BID PO Last administered on 09/18/16 08:12; Admin Dose 500 MG; Start 09/16/16 at 09:00 Ferrous Sulfate 325 mg 325 mg BID PO Last administered on 09/18/16 08:12; Admin Dose 325 MG; Start 09/16/16 at 09:00 Levofloxacin/ Dextrose (Levaquin 500mg/ D5W 100 ml (Pmx)) 100 ml @ 100 mls/hr Q48H IVPB Last administered on 09/18/16 06:18; Admin Dose 100 MLS/HR; Start at 03:00 Docusate Sodium (Colace) 100 mg Q12 PO Last administered on 09/18/16 08:12; Admin Dose 100 MG; Start 09/17/16 at 21:00 Procedures Procedures PROCEDURE: US Abdomen (right upper quadrant). CLINICAL INDICATION: Right upper quadrant abdomen pain. TECHNIQUE: Multiple real-time longitudinal and transverse images of the right upper quadrant of the abdomen were acquired utilizing a curved array transducer. Images were reviewed on a high-resolution PACS workstation. COMPARISON: None FINDINGS: The liver is normal in size and echogenicity. There is no focal hepatic lesion. Color Doppler and pulsed Doppler sonography demonstrate normal antegrade flow in the portal vein. The gallbladder is surgically absent. The bile ducts are normal with the common bile duct measuring 6.7 mm in diameter. The visualized portions of the pancreas are unremarkable with obscuration of the tail of the pancreas. No free fluid is present. The right kidney measures 9.4 x 4.0 x 5.9 cm. There is normal echogenicity of the right kidney. There is mild right hydronephrosis. There is no right renal mass or calculus. IMPRESSION: 1. Status post cholecystectomy. 2. Mild right hydronephrosis. Clinical correlation advised. 3. Otherwise normal right upper quadrant abdomen ultrasound. RPTAT: QQ .Bk Jacob MD, MD Date Time Electronically viewed and signed by .Bk Jacob MD, on 09/17/2016 20:06 KE HOOD Sep 18, 2016 13:58
[2016-09-18] MEDS: IMIPENEM-CILAST 250MG IV (PMX) 100 ML IVPB SCH ×2 (15:43→22:17)
[2016-09-18 16:22] LABS: HEPATITIS B CORE ANTIBODY NEGATIVE (NEGATIVE)
--- NOTE | 2016-09-18 22:36 | QN ---
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 Pt is an 89 y.o. admitted with cough and shortness of breath and dx'ed with a mild upper respiratory infection and also found to have pancreatitis and a UTI.Those entities are being appropriately treated and responding. Her platelet count is continuing to decrease with a last value of 61K. She has multiple medical problems including COPD, hypertension, chronic kidney disease, congestive heart failure with an EF of 40%, hypothyroidism and coronary artery disease, prediabetes,and urinary incontinence as she is wearing a diaper. Apparently the pt is living in a alf now as of her last visit to the hospital in June. I found the patient to be verbal but not communicative as she only answers questions occasionally when asked but does not volunteer anything.Her diaper was soaked and her bed was wet and she did not seem to be aware of it. It was also difficult to get the patient out of her chair and into the bed to be examined properly as she kept standing up and then sitting down despite multiple tries. I then was able to do a cursory exam of the protruding uterus which is a complete prolapse. It does not appear to be strangled in any way as it is soft and normal colored and I feel I could replace it easily into the vault but don't as it will come right back out again. The pt states that it has been this way for a year. PSHx:none. NKDA. Meds: as noted in the powerhouse operator's exam. A: Complete uterine prolapse. P: Options available for a prolapse are: (1) surgery in the form of a vaginal hysterectomy and an anterior posterior repair or a vault closure (colpocleisis) with the uterus intact- at 89 the pt is not a good surgical candidate, has multiple medical problems of far greater significance, and the uterus does not appear to bother her or she does not have enough awareness of it. There is also a very good likelihood that she would not gain bladder control with either procedure. There is some wear and tear on the cervix as she sits on it but that can be managed normally with a coating of A and D ointment or an estrogen cream. 2) a pessary but it would be difficult to fit her as it requires some trial and error and also follow-up appointments to remove and clean every few months to ensure there are no ulcerations in the vagina. 3) doing nothing, which I feel is the best choice here. With the uterus prolapsed one can either have the inability to void or incontinence or no effect.It would be most problematic if she could not void at all. As she can void, as she is a poor surgical candidate, and as it doesn't seem to bother her, generally there is no harm in leaving things be. With or without the prolapse it is good to check this pt intermittently for UTI's anyway as she is a good candidate for progression to pyelonephritis. Thank you. CASEY GUEVARA MD Sep 18, 2016 22:35
[2016-09-19] VITALS (12 sets, daily range): BP systolic 133–185; BP diastolic 60–83; PULSE 68–90; RESP 15–18
[2016-09-19] MEDS: ALBUTEROL/IPRATROPIUM (NEB) 3 ML AMP HHN SCH ×4 (01:39→20:26)
[2016-09-19] MEDS: PANTOPRAZOLE 40 MG INJ IV SCH (06:19)
[2016-09-19] MEDS: IMIPENEM-CILAST 250MG IV (PMX) 100 ML IVPB SCH ×3 (06:20→21:28)
[2016-09-19] MEDS: SOD CHLORIDE 0.45% 1,000 ML IV SCH ×2 (06:20→10:00)
[2016-09-19] MEDS: ASCORBIC ACID 500 MG TAB PO SCH ×2 (08:07→21:28)
[2016-09-19] MEDS: LEVOTHYROXINE 50 MCG TAB PO SCH (08:07)
[2016-09-19] MEDS: DOCUSATE SODIUM 100 MG CAP PO SCH ×2 (08:07→21:28)
[2016-09-19] MEDS: FERROUS SULFATE (EC) 325 MG TAB PO SCH ×2 (08:07→21:28)
--- NOTE | 2016-09-19 09:49 | RADRPT ---
PROCEDURE: Retroperitoneal US. CLINICAL INDICATION: Renal insufficiency, UTI TECHNIQUE: Multiple sonographic images of the kidneys and retroperitoneum were obtained. The imag es were reviewed on a PACS workstation. COMPARISON: 09/17/16 FINDINGS: The right kidney measures 8.4 cm. The left kidney is small and echogenic and measures 4.8 cm. No kidney stones are visualized. There is mild right-sided hydronephrosis. The urinary bladder is normal. The spleen measures 12.5 cm. RPTAT: AA IMPRESSION: Mild right-sided hydronephrosis. Small atrophic left kidney. .Aguila Rosario MD, MD Date Time Electronically viewed and signed by .Aguila Rosario MD, MD on 09/19/2016 09:49 .S/
--- NOTE | 2016-09-19 09:50 | RADRPT ---
PROCEDURE: US Pelvis. CLINICAL INDICATION: pelvic pain TECHNIQUE: Multiple sonographic images of the pelvis were obtained utilizing a transabdominal tech nique. The images were reviewed on a PACS workstation. COMPARISON: None. FINDINGS: The study is very limited. The uterus was not visualized. The ovaries were not visualized. There is no evidence for free fluid. RPTAT: AA IMPRESSION: Very limited study. Uterus and ovaries not visualized. No free fluid. .Aguila Rosario MD, MD Date Time Electronically viewed and signed by .Aguila Rosario MD, on 09/19/2016 09:50 .S/
[2016-09-19 10:30] LABS: ADD SCAN DIFF NO
[2016-09-19 10:34] LABS: ABNORMAL IP MESSAGE 1; BASOPHILS % 0.6 % (0.0-2.0); EOSINOPHILS # 0.1 10^3/ul (0.0-0.5); EOSINOPHILS % 2.8 % (0.0-7.0); HEMATOCRIT 35.1 % (37.0-47.0); HEMOGLOBIN 11.6 g/dl (12.0-16.0); LYMPHOCYTES # 1.6 10^3/ul (0.8-2.9); LYMPHOCYTES % 33.1 % (15.0-51.0); MEAN CORPUSCULAR HEMOGLOBIN 31.6 pg (29.0-33.0); MEAN CORPUSCULAR VOLUME 95.6 fl (82.0-101.0); MEAN PLATELET VOLUME 12.5 fl (7.4-10.4); MONOCYTE # 0.4 10^3/ul (0.3-0.9); MONOCYTES % 9.1 % (0.0-11.0); NEUTROPHIL # 2.5 10^3/ul (1.6-7.5); PLATELET COUNT 69 10^3/UL (140-415); RED BLOOD COUNT 3.67 10^6/ul (4.20-5.40); RED CELL DISTRIBUTION WIDTH 14.4 % (11.5-14.5); WHITE BLOOD COUNT 4.7 10^3/ul (4.8-10.8)
[2016-09-19 10:52] LABS: POTASSIUM 4.1 mmol/L (3.5-5.1)
[2016-09-19 10:55] LABS: CREATININE 1.22 mg/dl (0.44-1.00)
[2016-09-19 13:18] LABS: ADD UMIC NO; URINE BILIRUBIN (Dip) NEGATIVE (NEGATIVE); URINE BLOOD (Dip) NEGATIVE (NEGATIVE); URINE COLOR LT. YELLOW (YELLOW); URINE GLUCOSE (Dip) NEGATIVE (NEGATIVE); URINE KETONES (Dip) NEGATIVE (NEGATIVE); URINE LEUKOCYTE ESTERASE (Dip) NEGATIVE (NEGATIVE); URINE NITRITE (Dip) NEGATIVE (NEGATIVE); URINE TOTAL PROTEIN (Dip) NEGATIVE (NEGATIVE); URINE UROBILINOGEN (Dip) 0.2 E.U./dL (0.1-1.0)
[2016-09-19 13:33] LABS: PROTEIN URINE 5.7 mg/dl (0.0-9.9)
--- NOTE | 2016-09-19 13:47 | CONS ---
DATE OF ADMISSION: 09/16/2016 DATE OF CONSULTATION: 09/19/2016 REASON FOR CONSULTATION: Acute kidney injury. PHYSICIAN REQUESTING CONSULT: Dr. Cruz HISTORY OF PRESENT ILLNESS: This is an 89-year-old female with a past medical history of CKD stage IV with a baseline creatinine around 2.0 mg/dL, history of COPD, hypertension, dyslipidemia, CHF, hypothyroidism, thrombocytopenia, chronic disease who presents to [facility] with 2 weeks of coughing, shortness of breath. The patient had no chills. No nausea, no vomiting, no di arrhea. The patient upon arrival to the emergency room had a chest x-ray which showed atelectasis v ersus airspace disease. The patient was given nebulizer therapy, was started on IV antibiotics, and admitted to telemetry for evaluation. While on telemetry, the patient has been clinically stable. There have been no reports of hemoptysis, hematemesis or hematochezia. Upon admission, patient als o noted to have elevated lipase of 1200. The patient was given IV fluids and has been clinically im proving. No other acute events noted. In terms of the patient's renal history, the patient has underlying CKD stage IV with a baseline cre atinine around 2 mg/dL. The patient on admission had a creatinine below a previous baseline which h as been fluctuating but overall near previous known baseline of around 2 mg/dL. The patient denies any hemoptysis, hemetemesis, hematochezia. Denies any frothy urine, any rashes. PAST MEDICAL HISTORY: As stated above, history of chronic kidney disease stage IV, history of COPD, hypertension, diabetes, dyslipidemia, history of CHF. PAST SURGICAL HISTORY: None. ALLERGIES: NONE. FAMILY HISTORY: Noncontributory. SOCIAL HISTORY: Does not drink, smoke or do drugs. MEDICATIONS: The patient medications have been reviewed. REVIEW OF SYSTEMS: A 14-point review of systems was conducted. Pertinent positives as stated in HP I, otherwise negative. PHYSICAL EXAMINATION: VITAL SIGNS: Blood pressure is 165/72, respirations are 18, pulse 70, temperature 98.9. HEENT: Head is normocephalic. NECK: Supple. HEART: Regular rate. LUNGS: Show diminished breath sounds at base. ABDOMEN: Soft, nontender to palpation without rebound or guarding. EXTREMITIES: Negative for clubbing, cyanosis, no edema. DERMATOLOGIC: No rashes. MUSCULOSKELETAL: No joint effusions. NEUROLOGIC: No change in exam. MEDICATIONS: The patient's medications have been reviewed. LABORATORY DATA: Shows a white count 3.7, hemoglobin 10.1, hematocrit 30.3, platelet count is 61. Sodium 143, potassium 4.3, chloride 112, BUN 41, creatinine 1.60. IMAGING STUDIES: Reviewed. Liver ultrasound shows mild right hydronephrosis. ASSESSMENT AND PLAN: This is an 89-year-old female who presents with: 1. Nonoliguric acute kidney injury on top of chronic kidney disease stage IV with a previous baseli ne creatinine around 2.0 mg/dL. Etiology of current acute kidney injury is likely hemodynamics. Th e patient's current creatinine is below previous baseline. The patient's urinalysis shows no eviden ce of active sediment. The patient does have pyuria and urine culture is positive for E coli. At t his point, would continue current treatment plan. Continue treating underlying urinary tract infect ion. Continue IV antibiotics. Will repeat the patient's renal ultrasound to rule out obstructive u ropathy. Will recheck urine electrolytes, calculate a FENa. Otherwise, continue supportive care, r enally dose meds, avoid nephrotoxins. Would consider discontinuing IV fluids if okay with primary t eam. 2. Hypertension. Etiology is multifactorial due to underlying pain, increased intravascular volume . Continue current blood pressure regimen, consider discontinuing IV fluids. We will monitor close ly. 3. Anemia. Will continue to monitor H and H levels. No need for Epogen. 4. Mineral bone disorder. We will monitor calcium and phosphorus levels. 5. Acute respiratory failure. Etiology may be secondary to chronic obstructive pulmonary disease e xacerbation. Chest x-rays do not show evidence of volume overload. Will continue medical managemen t. Will continue nebulizer, supplemental oxygen. 6. Urinary tract infection. Continue current IV antibiotics. 7. Mild hyponatremia, improved. Continue current free water intake. 8. Elevated lipase. Etiology is possibly related to acute kidney injury, chronic kidney, questiona ble pancreatitis. The patient is currently clinically stable, no abdominal pain. Consider disconti nuing IV fluids and monitor closely. 9. Hypothyroidism. Continue Synthroid. 10. Coronary artery disease. Continue current medical management. 11. History of congestive heart failure. Continue to monitor closely on IV fluids. Thank you, Dr. Cruz, for this interesting consultation. It will be a pleasure to follow patient with you throughout the hospital course. Dictated By: GUERRERO BEATTY/ALINE Conf#: [id number] DID#: [id number]
[2016-09-19] MEDS: hydrALAzine 20 MG INJ IV PRN ×2 (14:49→23:55)
--- NOTE | 2016-09-19 16:01 | PDOCDIS ---
Discharge Instructions CONDITION Patient Condition: Fair HOME CARE INSTRUCTIONS: Special Diet: mechanical soft ACTIVITY: Activity Restrictions: Special Exercises FOLLOW UP/APPOINTMENTS Appointments Follow up with nephrology as out-pt MAKAYLA CRAWFORD MD Sep 19, 2016 16:01
[2016-09-20] VITALS (10 sets, daily range): BP systolic 124–170; BP diastolic 63–85; PULSE 81–102; RESP 15–18
[2016-09-20] MEDS: ALBUTEROL/IPRATROPIUM (NEB) 3 ML AMP HHN SCH ×3 (01:33→13:01)
[2016-09-20] MEDS: SOD CHLORIDE 0.45% 1,000 ML IV SCH (04:51)
[2016-09-20] MEDS: IMIPENEM-CILAST 250MG IV (PMX) 100 ML IVPB SCH ×2 (04:51→13:10)
[2016-09-20] MEDS: PANTOPRAZOLE 40 MG INJ IV SCH (04:54)
[2016-09-20 07:44] LABS: ADD SCAN DIFF NO
[2016-09-20 07:57] LABS: ABNORMAL IP MESSAGE 1; BASOPHIL # 0.1 10^3/ul (0.0-0.1); BASOPHILS % 0.7 % (0.0-2.0); EOSINOPHILS # 0.2 10^3/ul (0.0-0.5); EOSINOPHILS % 2.9 % (0.0-7.0); HEMATOCRIT 34.7 % (37.0-47.0); HEMOGLOBIN 11.8 g/dl (12.0-16.0); LYMPHOCYTES # 1.5 10^3/ul (0.8-2.9); MEAN CORPUSCULAR HEMOGLOBIN 31.7 pg (29.0-33.0); MEAN CORPUSCULAR VOLUME 93.3 fl (82.0-101.0); MEAN PLATELET VOLUME 12.1 fl (7.4-10.4); MONOCYTE # 0.7 10^3/ul (0.3-0.9); NEUTROPHIL # 4.8 10^3/ul (1.6-7.5); PLATELET COUNT 94 10^3/UL (140-415); RED BLOOD COUNT 3.72 10^6/ul (4.20-5.40); RED CELL DISTRIBUTION WIDTH 14.8 % (11.5-14.5); WHITE BLOOD COUNT 7.3 10^3/ul (4.8-10.8)
[2016-09-20 08:10] LABS: MAGNESIUM 1.8 mg/dl (1.7-2.5); PHOSPHORUS 2.8 mg/dl (2.5-4.9)
[2016-09-20 08:16] LABS: POTASSIUM 3.9 mmol/L (3.5-5.1)
[2016-09-20 08:18] LABS: CREATININE 1.08 mg/dl (0.44-1.00)
[2016-09-20 08:19] LABS: CALCIUM 9.1 mg/dl (8.4-10.2)
[2016-09-20] MEDS: LEVOTHYROXINE 50 MCG TAB PO SCH (08:45)
[2016-09-20] MEDS: FERROUS SULFATE (EC) 325 MG TAB PO SCH (08:45)
[2016-09-20] MEDS: ASCORBIC ACID 500 MG TAB PO SCH (08:45)
[2016-09-20] MEDS: DOCUSATE SODIUM 100 MG CAP PO SCH (08:45)
[2016-09-20] MEDS: hydrALAzine 20 MG INJ IV PRN (08:46)
--- NOTE | 2016-09-20 09:31 | DS ---
DATE OF ADMISSION: 09/16/2016 DATE OF DISCHARGE: 09/19/2016 CONSULTANTS: Dr. Mateo Collins. PROCEDURES: 1. A 2-D echocardiogram showed ejection fraction 45% to 50% with stage I diastolic dysfunction, mil d mitral valve regurg, mild aortic stenosis, mild aortic valve regurg. DIAGNOSIS: 1. Chronic pancreatitis 2. Dehydration. 3. Hypernatremia. 4. Chronic kidney disease stage IV. 5. History of coronary artery disease. 6. Congestive heart failure, ejection fraction 40%. 7. Chronic obstructive pulmonary disease. 8. Extended spectrum beta-lactamase urinary tract infection. 9. Hypothyroidism. 10. Mild transaminitis and hyperbilirubinemia. 11. Uterine prolapse. PRISM INSPECTOR consulted. Not a candidate for any surgical intervention. MEDICATIONS: 1. Tylenol. 2. DuoNeb. 3. Vitamin C. 4. Colace. 5. Ferrous sulfate. 6. Levothyroxine. 7. Half NS. 8. Zofran. 9. Cipro 400 mg IV q.12 hours x 7 days. 10. CBC, BNP, magnesium in a.m. 11. PT, OT evaluate and treat. HOSPITAL COURSE: This is an 89-year-old female with past medical history of COPD, hypertension, pre diabetic, chronic kidney disease, dyslipidemia, CHF, hypothyroidism, thrombocytopenia, coronary kerry ry disease. Presented with 2 weeks of cough, shortness of breath. The patient also has been compla ining of having nausea without any vomiting. The patient's blood pressure was found to be stable at 124/60, temperature 98.9. WBC was normal. Platelet 94. BNP 552, lipase of 1209. The patient's u rine was positive for E. coli, ESBL, sensitive to Cipro, Levaquin and imipenem. The patient was emil neda on imipenem during this course of hospitalization. Her platelet count has been stable today it is 69. The patient was also found to be dehydrated with creatinine 1.35. She was placed on IV flui d. Her LFTs have been improving. Lipase has been improving. Patient has been able to tolerate ora l intake without any difficulty. This time as per family request, patient will be transferred to [facility] for further evaluation and treatment. CONDITION AT TIME OF DISCHARGE: Stable. Sodium 142, potassium 4.1, chloride 101, bicarbonate 21, B UN 15, creatinine 1.22, glucose 137, calcium 9.0. WBC 4.7, hemoglobin 11.6, hematocrit 35.1, platel ets 69. CONDITION: Stable. Dictated By: MAKAYLA GUPTA/NTS Conf#: [id number] DID#: [id number]
--- NOTE | 2016-09-20 10:05 | PN ---
DATE: SUBJECTIVE: The patient is stable. No acute events overnight. No fevers, chills, nausea, vomiting . No shortness of breath. OBJECTIVE: VITAL SIGNS: Blood pressure 120/60, respiration 18, pulse 89, temperature 97.7. HEENT: Head is normocephalic. NECK: Supple. HEART: Regular rate. LUNGS: Show diminished breath sounds at the base. ABDOMEN: Soft, nontender to palpation. No rebound or guarding. EXTREMITIES: Negative for clubbing, cyanosis, edema. DERMATOLOGIC: No rashes. MUSCULOSKELETAL: No joint effusions. NEUROLOGIC: No change in exam. MEDICATIONS: The patient's medications have been reviewed. LABORATORY DATA: Sodium 143, potassium 3.9, chloride , BUN 26, creatinine 1.08. White count 7.3, hemoglobin 11.8, hematocrit 34.7, platelet count 94. Patient's urinalysis shows nonactive sedi ment, no significant proteinuria, renal ultrasound shows mild right sided hydronephrosis, small atro phic left kidney. ASSESSMENT AND PLAN: 1. Nonoliguric acute kidney injury on top of chronic kidney disease, stage IV, with a baseline crea tinine around 2 mg/dL. Etiology of acute kidney injury is secondary to hemodynamics. The patient's renal function has improved, currently below baseline after receiving IV fluids. The patient's leo al ultrasound does show mild right hydronephrosis. Unclear if there is obstructive component. The patient's urinalysis was bland, nonactive sediment. Therefore low suspicion for acute glomeruloneph ritis, vasculitis or interstitial nephritis. At this point, will continue current treatment plan. Will discontinue IV fluids. Would recommend a urology evaluation for further evaluation of hydronep hrosis, which can be done either in inpatient or outpatient setting. Otherwise, continue supportive care, renally dose meds, avoid nephrotoxins. 2. Hypertension: Blood pressure is improved. We will continue current blood pressure regimen. 3. Anemia: Continue to monitor hemoglobin and hematocrit levels. 4. Metabolic bone disorder: Continue to monitor calcium and phosphorus levels. 6. Sepsis secondary to urinary tract infection. Continue current antibiotic regimen. 7. Acute respiratory failure: Etiology is likely from chronic obstructive pulmonary disease exacer bation. Continue current medical management. Continue nebulizer, supplemental oxygen. 8. Hyponatremia: Resolved. 9. Elevated lipase: Unclear if this is acute pancreatitis versus due to acute kidney injury and ch ronic kidney disease. The patient is without abdominal pain. Tolerating p.o. We will discontinue IV fluids. 10. Hypothyroidism: Continue Synthroid. 11. Coronary artery disease: Continue current medical management. 12. History of congestive heart failure: Will discontinue IV fluids and monitor closely. Dictated By: GUERRERO BEATTY/ALINE Conf#: [id number] DID#: [id number]
[2016-09-20] MEDS: morphine 2 MG INJ IV PRN (10:49)
--- NOTE | 2016-09-21 06:42 | DS ---
DATE OF ADMISSION: 09/16/2016 DATE OF DISCHARGE: 09/20/2016 ADDENDUM Please see my discharge summary which was done on 09/19/2016. DIAGNOSES: 1. Chronic pancreatitis. 2. Dehydration. 3. Dyslipidemia. 4. Hypernatremia. 5. Chronic kidney disease stage III. 6. History of coronary artery disease. 7. Congestive heart failure with ejection fraction of 40%. 7. Chronic obstructive pulmonary disease. 8. Extended spectrum beta lactamase urinary tract infection. 9. Hypothyroidism. 10. Mild transaminitis. 11. Hyperbilirubinemia. 12. Uterine prolapse. Please see my discharge summary which was done on 09/19/2016. HOSPITAL COURSE: This is an 89-year-old female with past medical history of COPD, hypertension, pre diabetic, chronic kidney disease, dyslipidemia, congestive heart failure, hypothyroidism, thrombocy topenia, coronary artery disease, who presented to [facility] secondary to having 2 weeks of cough and shortness of breath also accompanied with nausea without any vomiting. The pat ient was found to have elevated lipase of 1209. The vitals were stable. BNP 522. Patient was also positive for E. coli ESBL sensitive to Cipro, Levaquin, and imipenem. The patient was placed on imi penem during the course of hospitalization. She was made n.p.o. Her lipase started to improve. The patient was found to also have thrombocytopenia with platelets of 69. There was no evidence of bleed ing. The patient was as stated above, placed on IV hydration. Nephrology was consulted. LFTs have been improving. Lipase has been improving. When her lipase started to improve, the patient's abdom inal discomfort and nausea resolved. The patient was started on clear liquid diet and has been adva nced as tolerated. Patient has been able to tolerate her oral intake without any difficulty. Her vitals today, temperature 98.0, pulse 92, respirations 18, blood pressure 136/68, 97% on room ai r. CONDITION AT TIME OF DISCHARGE: Stable. PHYSICAL EXAMINATION: GENERAL APPEARANCE: The patient is sitting on the chair comfortably without any distress. She is a wake, alert, and oriented. LUNGS: Clear to auscultation bilaterally. CARDIOVASCULAR: Normal S1, S2. Regular rhythm and rate. ABDOMEN: Soft, nontender, not distended. Bowel sounds present. No guarding, no rebound. GENITOURINARY: Deferred. MUSCULOSKELETAL: Upper and lower extremities within normal limits. GENERAL APPEARANCE: The patient is awake, alert, in no acute distress. CONDITION: Stable. Dictated By: MAKAYLA CRAWFORD MD PN/NTS Conf#: [id number] DID#: [id number]
[2016-09-21 16:03] LABS: MICROALBUMIN 3.5 mg/dL
== END 2016-09-20 15:55 | DRG 439 ==
LOC: E/R 11:57 → MS4 09-16 02:53
PROVIDERS: ADMIT Hospitalist; ATTEND Hospitalist
DX: K86.1 Other chronic pancreatitis (principal); E87.0 Hyperosmolality and hypernatremia; N18.4 Chronic kidney disease, stage 4 (severe); D69.6 Thrombocytopenia, unspecified; J44.1 Chronic obstructive pulmonary disease with (acute) exacerbation; N17.9 Acute kidney failure, unspecified; I13.0 Hypertensive heart and chronic kidney disease with heart failure and stage 1 through stage 4 chronic kidney disease, or unspecified chronic kidney disease; I50.20 Unspecified systolic (congestive) heart failure; N13.30 Unspecified hydronephrosis; N39.0 Urinary tract infection, site not specified; J45.901 Unspecified asthma with (acute) exacerbation; E86.0 Dehydration; I12.9 Hypertensive chronic kidney disease with stage 1 through stage 4 chronic kidney disease, or unspecified chronic kidney disease; I25.10 Atherosclerotic heart disease of native coronary artery without angina pectoris; E03.9 Hypothyroidism, unspecified; N81.4 Uterovaginal prolapse, unspecified; B96.20 Unspecified Escherichia coli [E. coli] as the cause of diseases classified elsewhere; E83.89 Other disorders of mineral metabolism; I08.0 Rheumatic disorders of both mitral and aortic valves; R73.03 Prediabetes
CPT/HCPCS: 36415; 71010; 76705; 76775; 76856; 80048; 80053; 80061; 80076; 81001; 81003; 82043; 83036; 83690; 83735; 83880; 84100; 84155; 84300; 84439; 84443; 84484; 85025; 85610; 85730; 86704; 86706; 86803; 87040; 87086; 87340; 92610; 93005; 93306; 94640; 94664; 96374; 96375; 97110; 97116; 97162; 97166; 97530; C9113; J0360; J0743; J1956; J2060; J2270; J2930; J7030

== ENCOUNTER 2017-06-07 11:27 | Inpatient (IN) | payer OTHER, MEDICAID ==
[~2017-06-07] VITALS: Ht 162.6 cm; Wt 56.4 kg
[~2017-06-07 11:27] MED LIST changes: -NITR-58 PO
[2017-06-07 11:47] VITALS: TEMP 98.1
--- NOTE | 2017-06-07 12:23 | RADRPT ---
PROCEDURE: CT Brain without contrast. CLINICAL INDICATION: Left facial droop. Code stroke. TECHNIQUE: A CT of the brain was performed on a multidetector CT scanner utilizing axial sections from the skull base through the vertex without contrast. Images were reviewed on a high-resolution myOrder workstation. Exam CTDI = 44.99 mGy and the DLP = 630.2 mGy-cm. DICOM images are available. One or more of the following dose reduction techniques were used: Automated exposure control Adjustment of the mA and/or kV according to patient size. Use of iterative reconstruction technique. COMPARISON: None available FINDINGS: Mild diffuse cerebral and cerebellar atrophy is present. There is proportionate dilatation of the v entricular system and sulci in a symmetric fashion. There is prominence of the extraaxial spaces sec ondary to atrophy. There is no evidence of intracranial hemorrhage, mass effect or midline shift. N o abnormal intra-axial or extra-axial fluid collections are seen. The density of the brain is mohit l and the chawla/white matter differentiation is well preserved. Mild to moderate patchy diffuse deep white matter microangiopathic ischemic change is seen. The osseous structures are unremarkable. Paranasal sinuses are clear. Vascular calcifications are identified. Critical findings were discussed with Yunior Neri on 06/07/2017 at 12:22 PM. IMPRESSION: 1. No intracranial hemorrhage, mass effect or midline shift. 2. Mild generalized atrophy. Mild to moderate microangiopathic ischemic change. 3. Intracranial atherosclerosis. RPTAT: BB .Adan Rain MD, MD Date Time Electronically viewed and signed by .Adan Rain MD, on 06/07/2017 12:23 .O/
[2017-06-07 12:43] LABS: BASOPHILS % 0.7 % (0.0-2.0); EOSINOPHILS # 0.2 10^3/ul (0.0-0.5); HEMATOCRIT 37.4 % (37.0-47.0); HEMOGLOBIN 12.4 g/dl (12.0-16.0); LYMPHOCYTES # 0.8 10^3/ul (0.8-2.9); LYMPHOCYTES % 12.5 % (15.0-51.0); MEAN CORPUSCULAR HEMOGLOBIN 29.6 pg (29.0-33.0); MEAN CORPUSCULAR HGB CONC 33.2 g/dl (32.0-37.0); MEAN CORPUSCULAR VOLUME 89.3 fl (82.0-101.0); MEAN PLATELET VOLUME 11.2 fl (7.4-10.4); MONOCYTE # 0.5 10^3/ul (0.3-0.9); MONOCYTES % 8.1 % (0.0-11.0); NEUTROPHIL # 4.5 10^3/ul (1.6-7.5); NEUTROPHILS % 74.4 % (39.0-77.0); PLATELET COUNT 110 10^3/UL (140-415); RED BLOOD COUNT 4.19 10^6/ul (4.20-5.40); RED CELL DISTRIBUTION WIDTH 14.2 % (11.5-14.5)
--- NOTE | 2017-06-07 12:47 | RADRPT ---
PROCEDURE: Chest x-ray CLINICAL INDICATION: Altered mental status TECHNIQUE: Chest single view COMPARISON: 09/16/2016 FINDINGS: There is stable mild cardiomegaly and atherosclerotic aortic calcification. The pulmonary vessels ar e normal in caliber. Chronic interstitial changes are seen. There is persistent mild right basilar a telectasis/scarring with adjacent right pleural thickening. Left costophrenic angle sharp. Bones are osteopenic. IMPRESSION: No acute cardiopulmonary disease. Stable cardiomegaly and atherosclerotic aortic calcification Chronic interstitial changes with scarring in the right lung base adjacent pleural thickening RPTAT: HH .Joao Rodriguez MD, MD Date Time Electronically viewed and signed by .Joao Rodriguez MD, on 06/07/2017 12:47 .W/
[2017-06-07 13:02] LABS: CALCIUM 9.5 mg/dl (8.4-10.2); CREATININE 2.07 mg/dl (0.44-1.00)
[2017-06-07 13:03] LABS: INR 1.07; PT RATIO 1.1
[2017-06-07 13:04] LABS: PARTIAL THROMBOPLASTIN TIME 36.1 Sec (25.0-35.0)
[2017-06-07 13:11] LABS: TROPONIN-I 0.016 ng/ml (0.00-0.12)
--- NOTE | 2017-06-07 14:26 | ERD ---
ER Documentation Chief Complaint Chief Complaint TIA HPI This is an 89-year-old female with a history of dementia, hypothyroidism, CHF, COPD who is presenting with a transient episode of altered mentation with left- sided deficits. The patient reportedly had an event this morning. She was found on the ground by her family member. She had a left-sided facial droop and seemed to be weaker on the left side. She was unable to speak or respond to commands. She also appeared to have perioral cyanosis at the time. An ambulance was called for further evaluation. The patient's symptoms resolved in route to the hospital. The patient currently feels well. She is alert and oriented 1, which is her baseline. The patient does have dementia. The patient does not have any complaints at this time. ROS All systems reviewed and are negative except as per history of present illness. Medications Home Meds Active Scripts Ipratropium-Albuterol (Ipratropium-Albuterol) 0.5-3 Mg/3 Ml Ampul.neb, 3 ML HHN Q6H RESP THERAPY for 30 Days Prov:MAKAYLA CRAWFORD MD 06/24/16 Furosemide* (Furosemide*) 20 Mg Tablet, 20 MG PO BID DIURETICS, #60 TAB Prov:MAKAYLA CRAWFORD MD 06/24/16 Ferrous Sulfate* (Ferrous Sulfate*) 325 Mg Tabec, 325 MG PO BID, #60 TAB Prov:MAKAYLA CRAWFORD MD 06/24/16 Ascorbic Acid (Vitamin C) 500 Mg Tab, 500 MG PO BID, #30 TAB Prov:MAKAYLA CRAWFORD MD 06/24/16 Reported Medications Levothyroxine Sodium* (Levothyroxine Sodium*) 50 Mcg Tablet, 50 MCG PO BEFORE BREAKFAST, #30 TAB PER RELATIVES PT HASN'T BEEN ABLE TO TAKE RX'S DUE TO INSURANCE ISSUES 07/19/16 Allergies Allergies: Coded Allergies: No Known Allergy (Unverified , 06/23/16) PMhx/Soc History of Surgery: No Anesthesia Reaction: No Hx Neurological Disorder: Yes (Dementia) Hx Respiratory Disorders: Yes (COPD, ASTHMA) Hx Cardiac Disorders: Yes (NE, CHF) Hx Psychiatric Problems: No Hx Miscellaneous Medical Probl: Yes (Hypothyroidism) Hx Alcohol Use: No Hx Substance Use: No Hx Tobacco Use: No Smoking Status: Never smoker FmHx Family History: coronary disease, No diabetes Physical Exam Vitals Vital Signs Date Time Temp Pulse Resp B/P Pulse Ox O2 Delivery O2 Flow Rate FiO2 06/07/17 13:04 60 20 113/49 98 Room Air 06/07/17 11:47 98.1 60 20 134/61 Room Air Physical Exam Const: No apparent distress, well-developed, thin Head: Normocephalic, Atraumatic Eyes: Normal Conjunctiva. Extraocular movements intact. Pupils equal, round and reactive to light ENT: Normal External Ears, Nose. Dry mucous membranes. Neck: Full range of motion. No meningismus. Resp: Clear to auscultation bilaterally, No wheezes, rales or rhonchi Cardio: Regular rate and rhythm. No murmurs, rubs or gallops Abd: Soft, non tender, non distended. Normal bowel sounds Skin: No petechiae or rashes Back: No midline tenderness. No CVA tenderness Ext: No cyanosis, or edema Neur: Awake and alert, oriented 1 (baseline). Cranial nerves intact. No facial droop. Normal strength, sensation and coordination. Psych: Normal Mood and Affect Result Diagram: 06/07/17 1225 06/07/17 1225 Results 24 hrs Laboratory Tests Test 06/07/17 12:25 White Blood Count 6.010^3/ul Red Blood Count 4.1910^6/ul Hemoglobin 12.4g/dl Hematocrit 37.4% Mean Corpuscular Volume 89.3fl Mean Corpuscular Hemoglobin 29.6pg Mean Corpuscular Hemoglobin Concent 33.2g/dl Red Cell Distribution Width 14.2% Platelet Count 38027^3/UL Mean Platelet Volume 11.2fl Neutrophils % 74.4% Lymphocytes % 12.5% Monocytes % 8.1% Eosinophils % 4.0% Basophils % 0.7% Nucleated Red Blood Cells % 0.0/100WBC Neutrophils # 4.510^3/ul Lymphocytes # 0.810^3/ul Monocytes # 0.510^3/ul Eosinophils # 0.210^3/ul Basophils # 0.010^3/ul Nucleated Red Blood Cells # 0.010^3/ul Prothrombin Time 14.0Sec Prothrombin Time Ratio 1.1 INR International Normalized Ratio 1.07 Activated Partial Thromboplast Time 36.1Sec Sodium Level 142mmol/L Potassium Level 5.0mmol/L Chloride Level 105mmol/L Carbon Dioxide Level 29mmol/L Anion Gap 13 Blood Urea Nitrogen 45mg/dl Creatinine 2.07mg/dl Glucose Level 199mg/dl Hemoglobin A1c 6.4% Calcium Level 9.5mg/dl Troponin I 0.016ng/ml Current Medications Medications (Trade) Dose Ordered Sig/To Route PRN Reason Start Time Stop Time Status Last Admin Dose Admin Aspirin (Aspirin) 324 mg ONCE ONCE PO 06/07/17 14:30 06/07/17 14:31 DC 06/07/17 14:31 Ondansetron HCl (Zofran Inj) 4 mg ER BRIDGE PRN IV NAUSEA AND/OR VOMITING 06/07/17 14:30 06/08/17 14:29 Acetaminophen (Tylenol Tab) 650 mg ER BRIDGE PRN PO MILD PAIN/FEVER 06/07/17 14:30 06/08/17 14:29 Procedures/MDM MDM The patient's presentation warrants further investigation. The patient presents with symptoms consistent with TIA versus syncope. There may have been an episode of cyanosis transiently. The patient did have left-sided deficits that were concerning. Fortunately, the patient's symptoms resolved prior to arrival and have not yet returned. A stroke workup will be performed. Given that the patient does not have any symptoms now, her NIH stroke scale is 0. She is not a TPA candidate. LABS The patient's blood work was obtained and reviewed. The patient's CBC shows no leukocytosis and no left shift. The patient is afebrile and does not appear systemically ill. I do not suspect a systemic infection. The patient is not anemic today. The patient's platelet count demonstrates a mild thrombocytopenia that may be further evaluated in the hospital but does not need to be emergently treated. The patient's BMP shows no signs of metabolic or electrolyte emergencies. The patient does have an elevated creatinine that is almost double her baseline.. EKG EKG read by me: Rate/Rhythm: Regular rate and rhythm at a rate of 61 beats per minute Intervals: Normal [place]: Left axis Impression: Nonspecific repolarization changes without evidence of acute ischemia or arrhythmia IMAGING CT Head FINDINGS: Mild diffuse cerebral and cerebellar atrophy is present. There is proportionate dilatation of the ventricular system and sulci in a symmetric fashion. There is prominence of the extraaxial spaces secondary to atrophy. There is no evidence of intracranial hemorrhage, mass effect or midline shift. No abnormal intra-axial or extra-axial fluid collections are seen. The density of the brain is normal and the chawal/white matter differentiation is well preserved. Mild to moderate patchy diffuse deep white matter microangiopathic ischemic change is seen. The osseous structures are unremarkable. Paranasal sinuses are clear. Vascular calcifications are identified. IMPRESSION: No intracranial hemorrhage, mass effect or midline shift. Mild generalized atrophy. Mild to moderate microangiopathic ischemic change. Intracranial atherosclerosis. Critical findings were discussed with Selwyn Neri on 06/07/2017 at 12:22 PM. Electronically viewed and signed by .Adan Rain MD, MD on 06/07/2017 12:23 TREATMENT/DISPOSITION Patient was given an aspirin in the emergency department with concerns of a TIA. At this time, the patient's symptoms have resolved and the patient's exam is reassuring. However, her chads-vasc score is 5 and she does require further evaluation for a TIA, will likely include an MRI of the head, and MRA of the head and neck and an echocardiogram. At this time, I feel that the patient requires admission for further evaluation and management. The patient will be admitted to panel in accordance with the patient's insurance. The patient was accepted by Dr. Driscoll at 14:25PM. The patient's blood pressure was elevated at greater than 120/80 while in the emergency department. The patient was otherwise stable with no evidence of hypertensive urgency or emergency or end organ damage. The patient does not require admission for blood pressure control. I have discussed with the patient the risks of hypertension. I have advised the patient to follow up with the primary care physician for outpatient monitoring and treatment for hypertension in 2-3 days. I have instructed the patient to return to the ER for any new or worsening symptoms including chest pain, shortness of breath, headache, blurred vision, confusion, nausea, vomiting or LOC. Disclaimer: Inadvertent spelling and grammatical errors are likely due to EHR/ dictation software use and do not reflect on the overall quality of patient care. Note that the electronic time recorded on this note does not necessarily reflect the actual time of the patient encounter. Departure Diagnosis: Primary Impression: TIA (transient ischemic attack) Transient cerebral ischemia type: other Qualified Code: G45.8 - Other specified transient cerebral ischemias Additional Impressions: Altered level of consciousness SIENA (acute kidney injury) Thrombocytopenia Condition: Serious SELWYN ASIF MD Jun 07, 2017 14:26
[2017-06-07] MEDS ORDERED: ASPIRIN 81 MG TAB PO ONE (14:30)
[2017-06-07] MEDS ORDERED: ONDANSETRON 4 MG INJ IV PRN ×2 (14:30→16:00)
[2017-06-07] MEDS ORDERED: ACETAMINOPHEN 325 MG TAB PO PRN ×2 (14:30→16:00)
[2017-06-07] MEDS: SOD CHLORIDE 0.9% 1,000 ML IV SCH (15:30)
[2017-06-07] MEDS ORDERED: BISACODYL (EC) 5 MG TAB PO PRN (16:00)
[2017-06-07] MEDS ORDERED: HYDROCODONE/APAP (5/325) TAB PO PRN (16:00)
[2017-06-07] MEDS ORDERED: morphine 2 MG INJ IV PRN (16:00)
[2017-06-07] MEDS ORDERED: ALBUTEROL/IPRATROPIUM (NEB) 3 ML AMP HHN PRN (16:00)
[2017-06-07] MEDS ORDERED: NACL 0.9% 3 ML SYG IV SCH (16:00)
[2017-06-07] MEDS ORDERED: LORAZEPAM 0.5 MG TAB PO PRN (16:00)
--- NOTE | 2017-06-07 16:09 | HP ---
Date/Time of Note Date/Time of Note DATE: 06/07/17 TIME: 15:56 Assessment/Plan VTE Prophylaxis VTE Prophylaxis Intervention: heparin Lines/Catheters IV Catheter Type (from Nrs): Saline Lock Assessment/Plan Chief Complaint/Hosp Course Objective Physical exam General: Patient is laying in bed and answers questions appropriately Mentation: Patient is alert and oriented 4, Head: Normocephalic atraumatic Eyes: EOMI, pupils reactive to light Neck: Supple, nontender, midline Respiratory: Clear to auscultation bilaterally Cardiovascular: regular rate, no obvious murmurs Gastrointestinal: non-tender to palpation, bowel sounds heard. Neurological: Moves all extremities spontaneously Skin: No new skin lesions Assessment and plan Left-sided weakness, TIA -Neurology consulted, symptoms resolved -CT brain shows no acute pathology -MRI, MRA of the brain as well as MRA of the neck and echo pending -Aspirin 81 mg starting tomorrow, received aspirin today in the ED CHF, chronic congestive heart failure -Mild when compared to previous echo done approximately 9 months prior, will compared to echo now -Chest x-ray clear, however due to mild AK I will hold off on Lasix tomorrow -Continue Coreg and lisinopril as tolerated -Monitor closely Acute kidney injury -Previous creatinine was significantly lower than currently, possible volume depletion, will mildly hydrate given CHF, if creatinine does not improve we will consult nephrology COPD -Duo nebs as needed Hypothyroidism -Continue levothyroxine Disposition -PT and OT and neurology consult pending Problems: HPI/ROS Admit Date/Time Admit Date/Time Hx of Present Illness Subjective Patient is a 89-year-old female past medical history of dementia, hypothyroidism, mild CHF, COPD who presents to [facility] for left-sided weakness. Patient apparently had a episode of left-sided weakness this morning. Patient was found down by her daughter and exhibited signs of left facial droop as well as left-sided weakness on her arm and leg. Currently patient is asymptomatic has no acute complaints and strength has returned to normal levels per patient and patient's daughter. Patient denies any shortness of breath, headache, nausea, vomiting, abdominal pain, weakness at this time. Patient uses a walker occasionally as well as a cane and lives at home with her daughter. Patient takes all her medications including this morning and does see a family practice physician on a normal basis. PMH: Dementia, hypothyroidism, CHF, COPD PSH: Minor abdominal surgery Social: Denies Meds: Medications inspected at bedside, Lasix 40 mg, levothyroxine 50 mcg, Coreg 3.125 twice daily, lisinopril 2.5 daily, Protonix 20 mg daily PMH/Family/Social Past Surgical History Past Surgical Hx: no surgical history Social History Smoking Status: Never smoker Exam/Review of Systems Vital Signs Vitals Vital Signs Date Time Temp Pulse Resp B/P Pulse Ox O2 Delivery O2 Flow Rate FiO2 06/07/17 13:04 60 20 113/49 98 Room Air 06/07/17 11:47 98.1 Labs Result Diagram: 06/07/17 1225 06/07/17 1225 CARLA LANGSTON Jun 07, 2017 16:06
[2017-06-07] MEDS ORDERED: LISI2.5T59 PO (16:26)
[2017-06-07] MEDS ORDERED: CARV3.1260 PO (16:27)
[2017-06-07] MEDS ORDERED: FURO40TA4 PO (16:28)
[2017-06-07] MEDS ORDERED: PANT20TA3 PO (16:28)
[2017-06-07 17:57] VITALS: Ht 162.6 cm; Wt 56.4 kg
[2017-06-07 20:00] VITALS: PULSE 57
[2017-06-07 20:24] VITALS: BP 148/67; RESP 20
[2017-06-07] MEDS: HEPARIN 5,000 UNIT/0.5 ML VIAL SC SCH (22:00)
[2017-06-07] MEDS ORDERED: LORAZEPAM 2 MG INJ ONE (22:49)
[2017-06-07] MEDS ORDERED: LORAZEPAM 2 MG INJ IM ONE (23:00)
[2017-06-08] VITALS (12 sets, daily range): BP systolic 93–157; BP diastolic 44–67; PULSE 58–77; RESP 18–20
--- NOTE | 2017-06-08 02:41 | RADRPT ---
PROCEDURE: MR Brain without intravenous contrast CLINICAL INDICATION: Left facial droop. COMPARISON: CT brain 06/07/2017. TECHNIQUE: Multiplanar multi-sequence images of the brain were obtained. FINDINGS: Parenchyma: No acute hemorrhage, infarction, or mass. Moderate generalized parenchymal volume loss. Diffuse confluent hyperintense signal on FLAIR and T2-weighted images within the bilateral subcortic al, deep and periventricular white matter consistent with moderate microvascular white matter ischem ic disease. No space occupying intra-axial masses. Gradient echo images are negative for hemorrhagic blood products. Chronic lacunar infarcts are present within the right caudate nucleus and left supe rior cerebellar hemisphere Ventricles: The ventricles are proportionate prominent and demonstrate no evidence of hydrocephalus. Extra-axial spaces: No herniation or midline shift. Orbits: Normal. Major intracranial flow voids: Preserved. Paranasal sinuses: Moderate opacification of the left maxillary sinus. Mastoids and middle ears: Clear. Bones: Normal. Extracranial soft tissues: Normal. Additional comment: None. IMPRESSION: 1. No acute ischemic infarct. 2. Moderate microvascular white matter ischemic disease. 3. Moderate generalized parenchymal volume loss. 4. Chronic lacunar infarcts within the right caudate nucleus and left superior cerebellar hemispher e. 5. Opacified left maxillary sinus. RPTAT: HRSR Physician Brandee Date Time Electronically viewed and signed by Physician Brandee on 06/08/2017 02:41 RR/
--- NOTE | 2017-06-08 02:46 | RADRPT ---
PROCEDURE: MR angiogram of the brain without contrast. CLINICAL INDICATION: Left facial droop, stroke. TECHNIQUE: An MR angiogram of the brain was performed on a Signa HDxt 3 whit scanner. 3-D time-of -flight images of the [place] of [place] and vertebrobasilar systems were obtained. Maximum intensity projection images were also obtained. No intravenous contrast was given. Images were viewed on a [employer]card workstation. COMPARISON: None. FINDINGS: Bilateral distal internal carotid arteries are of normal course and caliber. Bilateral anterior and middle cerebral arteries are within normal limits. Bilateral distal vertebral arteries are of norm al course and caliber. The basilar artery is intact. Bilateral posterior cerebral arteries are with in normal limits. There is no large branch vessel stenosis or occlusion. There is no aneurysm or v ascular malformation. IMPRESSION: Unremarkable MR angiogram of the brain. .Wale Leon MD, Date Time Electronically viewed and signed by .Wale Leon MD, on 06/08/2017 02:46 .T/
--- NOTE | 2017-06-08 02:49 | RADRPT ---
PROCEDURE: MR neck angiogram without contrast CLINICAL INDICATION: Left facial droop. COMPARISON: None. TECHNIQUE: Multiplanar multi-sequence angiogram of the neck was performed using 2-D time of flight technique. The extracranial arterial circulation was evaluated using a time resolved 3-D time of fli ght technique. Source images, maximum intensity projections, and sub-volume maximum intensity projec tion images were all reviewed. All stenosis measurements were made using NASCET methodology. FINDINGS: Examination is significantly limited secondary to patient motion. Visualized aorta and the great vessel origins: The origins of the great vessels cannot be adequately assessed. Right common carotid artery: Patent. Right internal carotid artery: Patent. Right external carotid artery: Patent. Left common carotid artery: Patent. Left internal carotid artery: Patent. Left external carotid artery: Patent Vertebral arteries: No flow-limiting stenosis. Vertebral artery dominance: Codominant. Additional comment: None. IMPRESSION: 1. Severe image degradation secondary to patient motion. 2. Patent bilateral carotid arteries. Strongly advise correlation with carotid ultrasound. 3. Patent codominant vertebral arteries. RPTAT: HRSR Physician Brandee Date Time Electronically viewed and signed by Physician Brandee on 06/08/2017 02:49 RR/
[2017-06-08] MEDS: LEVOTHYROXINE 50 MCG TAB PO SCH (05:52)
[2017-06-08] MEDS: PANTOPRAZOLE (EC) 40 MG TAB PO SCH (05:52)
[2017-06-08] MEDS: HEPARIN 5,000 UNIT/0.5 ML VIAL SC SCH ×3 (05:58→21:13)
[2017-06-08 08:59] LABS: BASOPHIL # 0.1 10^3/ul (0.0-0.1); BASOPHILS % 0.9 % (0.0-2.0); EOSINOPHILS # 0.2 10^3/ul (0.0-0.5); EOSINOPHILS % 3.6 % (0.0-7.0); HEMATOCRIT 35.5 % (37.0-47.0); HEMOGLOBIN 11.7 g/dl (12.0-16.0); LYMPHOCYTES # 1.4 10^3/ul (0.8-2.9); LYMPHOCYTES % 24.3 % (15.0-51.0); MEAN CORPUSCULAR HEMOGLOBIN 29.3 pg (29.0-33.0); MEAN PLATELET VOLUME 12.2 fl (7.4-10.4); MONOCYTE # 0.5 10^3/ul (0.3-0.9); MONOCYTES % 9.5 % (0.0-11.0); NEUTROPHIL # 3.4 10^3/ul (1.6-7.5); NEUTROPHILS % 61.5 % (39.0-77.0); PLATELET COUNT 111 10^3/UL (140-415); RED BLOOD COUNT 3.99 10^6/ul (4.20-5.40); RED CELL DISTRIBUTION WIDTH 14.6 % (11.5-14.5); WHITE BLOOD COUNT 5.6 10^3/ul (4.8-10.8)
[2017-06-08] MEDS: LISINOPRIL 5 MG TAB PO SCH (09:00)
[2017-06-08] MEDS: ASPIRIN 81 MG TAB PO SCH (09:00)
[2017-06-08 09:22] LABS: ALBUMIN/GLOBULIN RATIO 0.69; BILIRUBIN,INDIRECT 0.8 mg/dl (0-1.1); BILIRUBIN,TOTAL 0.8 mg/dl (0.2-1.3); CALCIUM 9.2 mg/dl (8.4-10.2); CHOL/HDL RATIO 4.6 RATIO; CREATININE 2.11 mg/dl (0.44-1.00); POTASSIUM 4.9 mmol/L (3.5-5.1); TOTAL PROTEIN 7.3 g/dl (6.1-8.1)
[2017-06-08 10:14] LABS: THYROID STIMULATING HORMONE 2.95 MIU/L (0.465-4.680)
--- NOTE | 2017-06-08 12:39 | CONS ---
Date/Time of Note Date/Time of Note DATE: 06/08/17 TIME: 12:35 Assessment/Plan Assessment/Plan Chief Complaint/Hosp Course 89 yo female with CHF, COPD, dementia, hypothyroidism admitted with left sided weakness transient now back to baseline possible TIA. MRI Brain shows no acute infarct, moderate microvascular changes, atrophy chronic lacunar infarcts. MRA unremarkable. HBA1C at goal, LDL : 100 Continue aspirin 81 mg EC low intensity statin is reasonable maintain SBP less than 140/90 ECHO DVT ppx PT/OT/Speech DC planning Problems: Consultation Date/Type/Reason Admit Date/Time 06/08/17 Date of Consultation: Jun 08, 2017 Type of Consultation: Neurology Reason for Consultation evaluation for TIA Referring Provider: CARLA LANGSTON Hx of Present Illness 89 yo female hx of dementia, hypothyroidism, CHF, COPD admitted with left sided weakness that began on morning of admission. On admission she had returned back to baseline with no notable deficits. Given ativan last night for agitation, she is currently difficult to arouse unable to provide history. Subjective hx not possible: pt non-verbal Past Medical History per HPI Past Surgical History Past Surgical Hx: no surgical history Social History Smoking Status: Never smoker Exam/Review of Systems Vital Signs Vitals Vital Signs Date Time Temp Pulse Resp B/P Pulse Ox O2 Delivery O2 Flow Rate FiO2 06/08/17 12:15 58 06/08/17 11:49 97.8 20 121/44 94 06/08/17 09:06 Nasal Cannula 2.0 Intake and Output 06/07/17 06/07/17 06/08/17 14:59 22:59 06:59 Intake Total 60 ml 100 ml Balance 60 ml 100 ml Exam difficult to arouse seen after ativan briefly opens her eyes, CN: JESSIE, blinks to threat no obvious facial asymmetry Motor: w/d to noxious stimuli in all extremities limited exam Results Result Diagram: 06/08/17 0811 06/08/17 0811 Results 24 hrs Laboratory Tests Test 06/08/17 08:11 06/08/17 10:23 White Blood Count 5.6 Red Blood Count 3.99 L Hemoglobin 11.7 L Hematocrit 35.5 L Mean Corpuscular Volume 89.0 Mean Corpuscular Hemoglobin 29.3 Mean Corpuscular Hemoglobin Concent 33.0 Red Cell Distribution Width 14.6 H Platelet Count 111 L Mean Platelet Volume 12.2 H Neutrophils % 61.5 Lymphocytes % 24.3 Monocytes % 9.5 Eosinophils % 3.6 Basophils % 0.9 Nucleated Red Blood Cells % 0.0 Neutrophils # 3.4 Lymphocytes # 1.4 Monocytes # 0.5 Eosinophils # 0.2 Basophils # 0.1 Nucleated Red Blood Cells # 0.0 Sodium Level 143 Potassium Level 4.9 Chloride Level 108 Carbon Dioxide Level 27 Anion Gap 13 Blood Urea Nitrogen 57 H Creatinine 2.11 H Glucose Level 162 Hemoglobin A1c 6.3 H Calcium Level 9.2 Total Bilirubin 0.8 Direct Bilirubin 0.00 Indirect Bilirubin 0.8 Aspartate Amino Transf (AST/SGOT) 57 H Alanine Aminotransferase (ALT/SGPT) 47 Alkaline Phosphatase 228 H Total Protein 7.3 Albumin 3.0 L Globulin 4.30 H Albumin/Globulin Ratio 0.69 Triglycerides Level 89 Cholesterol Level 150 LDL Cholesterol, Calculated 100 HDL Cholesterol 32 L Cholesterol/HDL Ratio 4.6 Thyroid Stimulating Hormone (TSH) 2.950 Bedside Glucose 159 Medications Medications Current Medications Sodium Chloride (NS) 1,000 ml @ 40 mls/hr Q24H IV Last administered on 15:30; Admin Dose 40 MLS/HR; Start 06/07/17 at 15:30 Levothyroxine Sodium (Synthroid) 50 mcg DAILY@06 PO Last administered on 05:52; Admin Dose 50 MCG; Start 06/08/17 at 06:00 Carvedilol (Coreg) 3.125 mg BID PO ; Start 06/07/17 at 21:00 Lisinopril (Zestril) 2.5 mg DAILY PO ; Start 06/08/17 at 09:00 Pantoprazole (Protonix Tab) 40 mg DAILY@06 PO Last administered on 06/08/17 05 :52; Admin Dose 40 MG; Start 06/08/17 at 06:00 Lorazepam (Ativan) 0.5 mg Q8H PRN PO ANXIETY Last administered on 06/07/17 22: 22; Admin Dose 0.5 MG; Start 06/07/17 at 16:00 Ondansetron HCl (Zofran Inj) 4 mg Q6H PRN IV NAUSEA AND/OR VOMITING; Start 06/07/17 at 16:00 Aspirin (Aspirin) 81 mg DAILY PO ; Start 06/08/17 at 09:00 Acetaminophen (Tylenol Tab) 650 mg Q6H PRN PO PAIN LEVEL 1-3 OR FEVER; Start 06/07/17 at 16:00 Acetaminophen/ Hydrocodone Bitart ([place] (5/325)) 1 tab Q6H PRN PO PAIN LEVEL 4 -6; Start 06/07/17 at 16:00 Morphine Sulfate (morphine) 2 mg Q4H PRN IV PAIN LEVEL 7-10; Start 06/07/17 at 16:00 Bisacodyl (Dulcolax) 5 mg DAILY PRN PO CONSTIPATION; Start 06/07/17 at 16:00 Heparin Sodium (Porcine) (Heparin (5000 Units/0.5 ml)) 5,000 unit Q8 SC Last administered on 06/08/17t 05:58; Admin Dose 5,000 UNIT; Start 06/07/17 at 22:00 ANCA LOWE MD Jun 08, 2017 12:39
[2017-06-08] MEDS ORDERED: ASPI-664 PO (14:15)
[2017-06-08] MEDS ORDERED: ATOR40TA68 PO (14:15)
--- NOTE | 2017-06-08 14:16 | PDOCDIS ---
Discharge Instructions CONDITION Patient Condition: Good HOME CARE INSTRUCTIONS: Diet Instructions: Regular ACTIVITY: Activity Restrictions: No Restrictions FOLLOW UP/APPOINTMENTS Follow-up Plan F/U WITH YOUR PCP IN 1-2 WEEKS STEFFANIE LANCE Jun 08, 2017 14:16
[2017-06-08] MEDS: SOD CHLORIDE 0.9% 1,000 ML IV SCH (15:30)
--- NOTE | 2017-06-08 16:06 | RADRPT ---
Echocardiogram Report Patient Name: TOMAS KIMBALL Gender: Female Date: 1925 Study Date: 08-Jun-2017 Aquatic Director: [facility] Location: [address] Ref. Physician: CARLA LANGSTON Quality: Adequate Procedures: Transthoracic echocardiogram with complete 2D, M-Mode, and doppler examination. Indications: Cerebrovascular Accident. 2D/M Mode Doppler Measurement Value Normal Ranges Measurement Value Normal Ranges LVIDd 2D 3.6 3.5 - 5.6 cm AV Peak Ajit 1.8 m/sec LVIDs 2D 2.7 2.1 - 4.1 cm AV Peak PG 13.0 mmHg FS 2D 24.5 % AI Peak PG 34.0 mmHg LVPWd 2D 1.5 0.6 - 1.1 cm AI Peak Ajit 2.9 m/sec IVSd 2D 1.5 0.6 - 1.1 cm AI PHT 698.0 msec IVS/LVPW 2D 1.0 LVOT Peak Ajit 0.7 m/sec AoR Diam 2D 2.8 2.0 - 3.7 cm LVOT Peak PG 2.0 mmHg LA/Ao 2D 1 0 - 1 MV E Peak Ajit 0.6 m/sec EDV 2D 46.3 cm3 MV A Peak Ajit 1.1 m/sec ESV 2D 19.9 cm3 MV E/A 0.6 LA Dimen 2D 3.8 2.3 - 4.0 cm MV Decel Time 183 msec MV E/A 0.6 TR Peak Ajit 2.5 m/sec TR Peak PG 25.0 mmHg Findings Left Ventricle: Normal left ventricular cavity size. Moderate concentric left ventricular hypertrophy. Mild global left ventricular systolic dysfunction. Ejection fraction is visually estimated at 4550 %. Tissue Doppler/Mitral Doppler indices are consistent with impaired relaxation (Stage I diastolic dysfunction). Right Ventricle: Normal right ventricular size. Normal right ventricular systolic function. Left Atrium: The left atrium is normal in size. Right Atrium: The right atrium is normal in size. Mitral Valve: Mitral valve leaflets appear mildly thickened. Mild mitral leaflet calcification. Mild mitral annular calcification. Trace mitral regurgitation. Aortic Valve: Aortic sclerosis without stenosis. Aortic cusps appear moderately calcified. Mild aortic valve regurgitation. Tricuspid Valve: Normal appearance of the tricuspid valve. Estimated peak PA systolic pressure 25 mmHg. There is trace tricuspid regurgitation. Pulmonic Valve: Pulmonic valve not well visualized. There is trace pulmonic regurgitation. Pericardium: Left pleural effusion seen. Aorta: Normal aortic root. IVC: Normal size and normal respiratory collapse consistent with normal right atrial pressure. Conclusions 1.The left ventricle is normal in size with mildly reduced systolic function. There is global hypokinesis. 2.Estimated left ventricular ejection fraction of 45-50%. 3.Moderate concentric left ventricular hypertrophy. Grade 1 diastolic dysfunction. Electronically Signed By: Carlos Shepherd 08-Jun-2017 16:04:41 -0800 Patient Name: TOMAS KIMBALL Study Date: 08-Jun-2017 [id number]
--- NOTE | 2017-06-08 17:33 | PN ---
Date/Time of Note Date/Time of Note DATE: 06/08/17 TIME: 17:23 Assessment/Plan VTE Prophylaxis VTE Prophylaxis Intervention: heparin Lines/Catheters IV Catheter Type (from Nrs): Peripheral IV Urinary Cath still in place: No Assessment/Plan Chief Complaint/Hosp Course 1. Left-sided weakness, TIA-resolved -Neurology consult appreciated -CT brain shows no acute pathology -MRI, MRA of the brain and neck show no acute findings -Aspirin 81 mg and Lipitor -PT -Patient still drowsy secondary to Ativan, family uncomfortable taking patient back home and so will hold off on DC tonight 2. Chronic systolic CHF-compensated -Echo shows an EF at 45-50% -Resume home meds 3. Likely CKD Monitor 4. COPD -Duo nebs as needed 5. Hypothyroidism -Continue levothyroxine Prophylaxis: Heparin Disposition: Plan for discharge home with home health tomorrow Problems: Subjective 24 Hr Interval Summary Subjective hx not possible: other (Fatigue) Exam/Review of Systems Vital Signs Vitals Vital Signs Date Time Temp Pulse Resp B/P Pulse Ox O2 Delivery O2 Flow Rate FiO2 06/08/17 16:07 59 06/08/17 15:39 97.8 20 116/53 97 06/08/17 09:06 Nasal Cannula 2.0 Intake and Output 06/07/17 06/07/17 06/08/17 14:59 22:59 06:59 Intake Total 60 ml 100 ml Balance 60 ml 100 ml Exam Constitutional: alert Respiratory: clear to auscultation Cardiovascular: regular rate and rhythm Gastrointestinal: soft, No distended Musculoskeletal: nl extremities to inspection Results Result Diagram: 06/08/17 0811 06/08/17 0811 Results 24 hrs Laboratory Tests Test 06/08/17 08:11 06/08/17 10:23 White Blood Count 5.6 Red Blood Count 3.99 L Hemoglobin 11.7 L Hematocrit 35.5 L Mean Corpuscular Volume 89.0 Mean Corpuscular Hemoglobin 29.3 Mean Corpuscular Hemoglobin Concent 33.0 Red Cell Distribution Width 14.6 H Platelet Count 111 L Mean Platelet Volume 12.2 H Neutrophils % 61.5 Lymphocytes % 24.3 Monocytes % 9.5 Eosinophils % 3.6 Basophils % 0.9 Nucleated Red Blood Cells % 0.0 Neutrophils # 3.4 Lymphocytes # 1.4 Monocytes # 0.5 Eosinophils # 0.2 Basophils # 0.1 Nucleated Red Blood Cells # 0.0 Sodium Level 143 Potassium Level 4.9 Chloride Level 108 Carbon Dioxide Level 27 Anion Gap 13 Blood Urea Nitrogen 57 H Creatinine 2.11 H Glucose Level 162 Hemoglobin A1c 6.3 H Calcium Level 9.2 Total Bilirubin 0.8 Direct Bilirubin 0.00 Indirect Bilirubin 0.8 Aspartate Amino Transf (AST/SGOT) 57 H Alanine Aminotransferase (ALT/SGPT) 47 Alkaline Phosphatase 228 H Total Protein 7.3 Albumin 3.0 L Globulin 4.30 H Albumin/Globulin Ratio 0.69 Triglycerides Level 89 Cholesterol Level 150 LDL Cholesterol, Calculated 100 HDL Cholesterol 32 L Cholesterol/HDL Ratio 4.6 Thyroid Stimulating Hormone (TSH) 2.950 Bedside Glucose 159 Medications Medications Current Medications Sodium Chloride (NS) 1,000 ml @ 40 mls/hr Q24H IV Last administered on 15:30; Admin Dose 40 MLS/HR; Start 06/07/17 at 15:30 Levothyroxine Sodium (Synthroid) 50 mcg DAILY@06 PO Last administered on 05:52; Admin Dose 50 MCG; Start 06/08/17 at 06:00 Carvedilol (Coreg) 3.125 mg BID PO ; Start 06/07/17 at 21:00 Lisinopril (Zestril) 2.5 mg DAILY PO ; Start 06/08/17 at 09:00 Pantoprazole (Protonix Tab) 40 mg DAILY@06 PO Last administered on 06/08/17 05 :52; Admin Dose 40 MG; Start 06/08/17 at 06:00 Ondansetron HCl (Zofran Inj) 4 mg Q6H PRN IV NAUSEA AND/OR VOMITING; Start 06/07/17 at 16:00 Aspirin (Aspirin) 81 mg DAILY PO ; Start 06/08/17 at 09:00 Acetaminophen (Tylenol Tab) 650 mg Q6H PRN PO PAIN LEVEL 1-3 OR FEVER; Start 06/07/17 at 16:00 Acetaminophen/ Hydrocodone Bitart ([place] (5/325)) 1 tab Q6H PRN PO PAIN LEVEL 4 -6; Start 06/07/17 at 16:00 Morphine Sulfate (morphine) 2 mg Q4H PRN IV PAIN LEVEL 7-10; Start 06/07/17 at 16:00 Bisacodyl (Dulcolax) 5 mg DAILY PRN PO CONSTIPATION; Start 06/07/17 at 16:00 Heparin Sodium (Porcine) (Heparin (5000 Units/0.5 ml)) 5,000 unit Q8 SC Last administered on 06/08/17t 05:58; Admin Dose 5,000 UNIT; Start 06/07/17 at 22:00 STEFFANIE LANCE Jun 08, 2017 17:33
[2017-06-08] MEDS ORDERED: ATORVASTATIN 40 MG TAB PO SCH (21:00)
[2017-06-09] VITALS (9 sets, daily range): BP systolic 119–136; BP diastolic 56–78; PULSE 68–90; RESP 18–20
[2017-06-09] MEDS: PANTOPRAZOLE (EC) 40 MG TAB PO SCH (05:31)
[2017-06-09] MEDS: LEVOTHYROXINE 50 MCG TAB PO SCH (05:31)
[2017-06-09] MEDS ORDERED: FUROSEMIDE 40 MG TAB PO SCH (09:00)
[2017-06-09] MEDS: LISINOPRIL 5 MG TAB PO SCH (09:00)
[2017-06-09] MEDS: ASPIRIN 81 MG TAB PO SCH (09:00)
[2017-06-09] MEDS: HEPARIN 5,000 UNIT/0.5 ML VIAL SC SCH (09:00)
[2017-06-09 09:03] LABS: CALCIUM 9.3 mg/dl (8.4-10.2); CREATININE 1.77 mg/dl (0.44-1.00); MAGNESIUM 2.1 mg/dl (1.7-2.5); PHOSPHORUS 3.8 mg/dl (2.5-4.9); POTASSIUM 4.3 mmol/L (3.5-5.1)
--- NOTE | 2017-06-09 13:48 | DS ---
Date/Time of Note Date/Time of Note DATE: 06/09/17 TIME: 13:43 Discharge Summary Admission/Discharge Info Admit Date/Time Jun 07, 2017 at 14:28 Discharge Date/Time June 09, 2017 Discharge Diagnosis 1. Left-sided weakness, TIA-resolved -Neurology consult appreciated -CT brain shows no acute pathology -MRI, MRA of the brain and neck show no acute findings -DC with aspirin 81 mg and Lipitor -Home health for PT 2. Chronic systolic CHF-compensated -Echo shows an EF at 45-50% -Resume home meds 3. Likely CKD Monitor 4. COPD -Stable 5. Hypothyroidism -Continue levothyroxine Patient Condition: Fair Hospital Course Patient is a 89-year-old female past medical history of dementia, hypothyroidism, mild CHF, COPD who presents to [facility] for left-sided weakness. Patient had extensive workup including MRI and MRA are negative for acute findings. Patient was diagnosed with a TIA as weakness resolved shortly after onset and hence patient was not a candidate for TPA. Patient was seen by neurology during the hospitalization and was started on aspirin and Lipitor. A1c was 6.3 and lipids were within normal limits. Patient was felt to be stable for DC to home with home health, patient's discharge was held an extra evening as she received Ativan and became very drowsy, on the day of discharge patient's mentation improved and was back to baseline. On the day of discharge patient's vitals, labs and physical exam stable she no acute complaints and questions are answered Home Meds Active Scripts Aspirin* (Aspirin* (EC)) 81 Mg Tablet., 81 MG PO DAILY, #90 TAB Prov:STEFFANIE LANCE 06/08/17 Atorvastatin* (Atorvastatin*) 40 Mg Tablet, 40 MG PO QHS, #60 TAB Prov:STEFFANIE LANCE 06/08/17 Reported Medications Furosemide* (Furosemide*) 40 Mg Tablet, 40 MG PO DAILY, TAB 06/07/17 Pantoprazole* (Pantoprazole*) 20 Mg Tablet., 20 MG PO BID, TAB 06/07/17 Carvedilol* (Carvedilol*) 3.125 Mg Tablet, 3.125 MG PO BID, #60 TAB 06/07/17 Lisinopril* (Lisinopril*) 2.5 Mg Tablet, 2.5 MG PO DAILY, #30 TAB 06/07/17 Levothyroxine Sodium* (Levothyroxine Sodium*) 50 Mcg Tablet, 50 MCG PO BEFORE BREAKFAST, #30 TAB 07/19/16 Discontinued Scripts Ipratropium-Albuterol (Ipratropium-Albuterol) 0.5-3 Mg/3 Ml Ampul.neb, 3 ML HHN Q6H RESP THERAPY for 30 Days Prov:MAKAYLA CRAWFORD MD 06/24/16 Furosemide* (Furosemide*) 20 Mg Tablet, 20 MG PO BID DIURETICS, #60 TAB Prov:MAKAYLA CRAWFORD MD 06/24/16 Ferrous Sulfate* (Ferrous Sulfate*) 325 Mg Tabec, 325 MG PO BID, #60 TAB Prov:MAKAYLA CRAWFORD MD 06/24/16 Ascorbic Acid (Vitamin C) 500 Mg Tab, 500 MG PO BID, #30 TAB Prov:MAKAYLA CRAWFORD MD 06/24/16 Follow-up Plan F/U WITH YOUR PCP IN 1-2 WEEKS Primary Care Provider Valeriy Larsen MD Time spent on discharge: > 30 minutes STEFFANIE LANCE Jun 09, 2017 13:48
== END 2017-06-09 15:40 | disposition home health service (06) | DRG 69 ==
LOC: E/R 11:27 → MS4 14:28
PROVIDERS: ADMIT Internal Medicine; ATTEND Internal Medicine
DX: G45.9 Transient cerebral ischemic attack, unspecified (principal); N17.9 Acute kidney failure, unspecified; I50.22 Chronic systolic (congestive) heart failure; F03.90 Unspecified dementia, unspecified severity, without behavioral disturbance, psychotic disturbance, mood disturbance, and anxiety; J44.9 Chronic obstructive pulmonary disease, unspecified; N18.9 Chronic kidney disease, unspecified; E03.9 Hypothyroidism, unspecified; I25.2 Old myocardial infarction
CPT/HCPCS: 36415; 70450; 70544; 70549; 70551; 71010; 80048; 80053; 80061; 82962; 83036; 83735; 84100; 84443; 84484; 85025; 85610; 85730; 92610; 93005; 93306; 94664; 97162; 97166; J1644; J2060; J7030

== ENCOUNTER 2017-07-25 01:46 | Observation (INO) | END 2017-07-27 15:15 | disposition home or self-care (01) ==